=== PATIENT | female | born 1990 | race Caucasian/White ===

== ENCOUNTER 2022-11-24 13:29 | Emergency (ER) | payer OTHER, SELFPAY ==
[2022-11-24 13:37] VITALS: BP 110/69; PULSE 107; RESP 20; TEMP 38.2; O2SAT 98; BMI 20.9
--- NOTE | 2022-11-24 13:50 | ED.NAVMDI1 ---
HPI - Nausea/Vomiting/Diarrhea General Chief complaint: Nausea/Vomiting/Diarrhea Stated complaint: GENERAL WEAKNESS/ FLU LIKE SYMPTOMS Time Seen by Provider: 11/24/22 13:50 Source: patient Source comment: Mother states vomited x 2 today and diarrhea x 2 today Mode of arrival: walk-in Limitations: language barrier and altered mental status Limitations comment: MRDD History of Present Illness HPI Narrative: Patient Brought into the emergency department by parents with the complaint of nausea, vomiting, and diarrhea. Patient has a history of MRDD. She started vomiting 2 times yesterday and had 2 diarrhea bowel movements. She also had a fever. Parents deny any hematemesis, melena, hematochezia. Patient has not had any cough. They deny any shortness of breath. She denies any abdominal pain. Patient sent here by Dr. Mujica for IV hydration. Parents state they gave her Tylenol earlier but she vomited it. Patient wears depends. They deny any recent antibiotics. they denies any trauma. Related Data Home Medications Medication Instructions Recorded Confirmed multivitamin (Daily Multi-Vitamin 1 tab PO DAILY 11/24/22 11/24/22 tablet) risperidone 1 mg tablet 1 mg PO DAILY 11/24/22 11/24/22 trazodone 100 mg tablet 150 mg PO DAILY 11/24/22 11/24/22 Previous Rx's Medication Instructions Recorded ciprofloxacin HCl 500 mg tablet 250 mg PO Q12H #14 tabs 11/24/22 (Cipro) metronidazole 500 mg tablet 500 mg PO BID 10 days #20 tabs 11/24/22 ondansetron 4 mg disintegrating 4 mg PO Q6H PRN nausea and 11/24/22 tablet vomiting #10 tabs Allergies Allergy/AdvReac Type Severity Reaction Status Date / Time No Known Drug Allergies Allergy Verified 11/24/22 13:43 Review of Systems ROS Status of ROS unobtainable due to mental status PFSH PFSH Social History Smoking status: Never smoker Exam Narrative Exam Narrative: Nurses notes and vital signs reviewed and patient is not hypoxic. General: Nontoxic, MRDD, in no apparent distress. Skin: Warm, dry, no pallor noted. No Rash Head: Normocephalic, atraumatic. Neck: Supple, non-tender. Eye: Pupils are equal, round and EOMI. No scleral icterus. Ears, Nose, Mouth, and Throat: TM clear, no posterior oropharynx erythema or nasal mucosal hypertrophy, uvula is mid-line Oral mucosa is dry, Macroglossia Cardiovascular: Regular Rate and Rhythm without murmur, gallop or rub. Respiratory: No accessory muscle use or respiratory distress. Lungs Scattered rhonchi Chest Wall: no tenderness Back: No midline thoracic or lumbar vertebral tenderness. No CVA tenderness Musculoskeletal: normal ROM, no calf or popliteal tenderness, no lower extremity edema/swelling GI: Abdomen is soft, non-distended. Normal bowel sounds. No tenderness to palpation. No rebound, guarding, or rigidity noted. Neurological: A&O x1. No truncal ataxia. Moves all extremities. Psychiatric: Cooperative Constitutional Vital Signs - 24 hr 11/24/22 13:37 11/24/22 14:00 11/24/22 16:20 Temperature 100.7 F H 102.8 F H Pulse Rate [Monitor] 107 H 104 H Respiratory Rate 20 18 Blood Pressure [Left Arm] 110/69 92/60 Pulse Oximetry 98 98 98 Oxygen Delivery Method Room Air Room Air Room Air Course Vital Signs Vital signs: Vital Signs Temperature 100.7 F H 11/24/22 13:37 Pulse Rate 107 H 11/24/22 13:37 Respiratory Rate 20 11/24/22 13:37 Blood Pressure 110/69 11/24/22 13:37 Pulse Oximetry 98 11/24/22 13:37 Oxygen Delivery Method Room Air 11/24/22 13:37 Temperature 102.8 F H 11/24/22 16:20 Pulse Rate 104 H 11/24/22 16:20 Respiratory Rate 18 11/24/22 16:20 Blood Pressure 92/60 11/24/22 16:20 Pulse Oximetry 98 11/24/22 16:20 Oxygen Delivery Method Room Air 11/24/22 16:20 MDM - Nausea/Vomiting/Diarrhea MDM Narrative Medical decision making narrative: Patient had an IV established lab studies were done. Patient was given 1 L off normal saline and antiemetics. Patient was febrile she was given Tylenol. We were awaiting a urinalysis and stool sample. Patient was at her baseline was sitting up and interacting with family as usual so the family wanted to go and take her home. They stated they just wanted to get IV fluids and she has perked up and is acting normal. We advised that the patient still had a fever and we would benefit from obtaining the stool sample to see if she needs to be treated with antibiotics. Family is eager to go. I discussed this with Dr. Mujica who advised to have the patient to a stool sample as an outpatient and start preemptively on Cipro and Flagyl. The patient has remained hemodynamically stable. No additional indication for emergent studies at this time. I answered all questions. Discussed discharge instructions including standard anticipatory guidance and what should prompt a return to the emergency department, including if they get worse are not getting better or develops any new or concerning symptoms. I've given them specific time frame in which to follow-up, and who to follow-up with. The patient demonstrates understanding. Patient is nontoxic and stable for discharge with outpatient follow-up. This note was created with the assistance of a speech recognition program. Although the intention is to generate documents that actually reflects the content of the visit, no guarantees can be provided that every mistake has been identified and corrected by editing. Differential Diagnosis Differential diagnosis: Likely gastroenteritis and dehydration Lab Data Attestation: I reviewed the patient's lab results. Labs: Lab Results 11/24/22 11/24/22 Range/Units 15:00 15:19 WBC 4.7 (4.0-11.0) 10^3/uL RBC 4.00 L (4.20-5.40) 10^6/uL Hgb 13.8 (12.0-16.0) g/dL Hct 40.7 (36.0-48.0) % MCV 101.8 H (81.0-99.0) fL MCH 34.5 H (26.7-34.0) pg MCHC 33.9 (29.9-35.2) g/dL RDW 13.2 (11.0-15.0) % Plt Count 163 (150-450) 10^3/uL MPV 8.8 L (9.5-13.5) fL Seg Neuts % (Manual) 79.0 Band Neutrophils % 9.0 H (0-5) % Lymphocytes % (Manual) 9.0 L (20.5-60.0) % Monocytes % (Manual) 2.0 (1.7-12.0) % Eosinophils % (Manual) 1.0 (0.9-7.0) % Basophils % (Manual) 0.0 L (0.2-2.0) % Neutrophils # (Manual) 3.71 (1.4-6.5) 10^3/uL Band Neutrophils # 0.4 H (0.0-0.3) 10^3/uL Lymphocytes # (Manual) 0.42 L (1.20-3.80) 10^3/uL Monocytes # (Manual) 0.09 L (0.30-0.80) 10^3/uL Eosinophils # (Manual) 0.04 (0.00-0.70) 10^3/uL Basophils # (Manual) 0.00 (0.00-0.10) 10^3/uL Sodium 140 (136-145) mmol/L Potassium 3.8 (3.5-5.1) mmol/L Chloride 105 (98-107) mmol/L Carbon Dioxide 26.2 (21.0-32.0) mmol/L Anion Gap 12.6 BUN 17.0 (7.0-18.0) mg/dL Creatinine 0.88 (0.55-1.02) mg/dL Est GFR ( Amer) >60 (>=60) Est GFR (Non-Af Amer) >60 (>=60) BUN/Creatinine Ratio 19.3 Glucose 105 (74-106) mg/dL Lactate 1.5 (0.4-2.0) mmol/L Calcium 8.0 L (8.5-10.1) mg/dL Total Bilirubin 0.6 (0.2-1.0) mg/dL AST 75 H (15-37) U/L ALT 208 H (14-59) U/L Alkaline Phosphatase 67 (46-116) U/L Total Protein 7.0 (6.4-8.2) g/dL Albumin 3.1 L (3.4-5.0) g/dL Globulin 3.9 g/dL Albumin/Globulin Ratio 0.8 Urine Color Dk. yellow (YELLOW) Urine Clarity Clear (CLEAR) Urine pH 5.5 (5.0-9.0) Ur Specific [place] >=1.030 A (1.005-1.025) Urine Protein 30 A (NEG/TRACE) mg/dL Urine Glucose (UA) Negative (NEGATIVE) mg/dL Urine Ketones Trace A (NEGATIVE) mg/dL Urine Occult Blood Negative (NEGATIVE) Urine Nitrite Negative (NEGATIVE) Urine Bilirubin Small A (NEGATIVE) Urine Urobilinogen 1.0 (0.2-1.0) EU/dL Ur Leukocyte Esterase Negative (NEGATIVE) Urine RBC 0-2 (0-2) #/HPF Urine WBC 0-2 A (NONE SEEN) #/HPF Ur Squamous Epith Cells Few A (NONE/RARE) #/LPF Urine Crystals None seen (None Seen) #/HPF Urine Bacteria Trace A (NONE SEEN) #/HPF Urine Casts None seen (NONE SEEN) #/LPF Urine Mucus Small A (NONE SEEN) Ur Culture Indicated? No Discharge Plan Discharge Chief Complaint: Nausea/Vomiting/Diarrhea Clinical Impression: Gastroenteritis, Dehydration Patient Disposition: Home, Self-Care Time of Disposition Decision: 16:28 Condition: Good Mode of Transportation: Private Vehicle Prescriptions / Home Meds: New ciprofloxacin HCl [Cipro] 500 mg tablet 250 mg PO Q12H Qty: 14 0RF metronidazole 500 mg tablet 500 mg PO BID 10 Days Qty: 20 0RF ondansetron 4 mg tablet,disintegrating 4 mg PO Q6H PRN (Reason: nausea and vomiting) Qty: 10 0RF No Action multivitamin [Daily Multi-Vitamin] Tablet 1 tab PO DAILY risperidone 1 mg tablet 1 mg PO DAILY trazodone 100 mg tablet 150 mg PO DAILY Instructions: Dehydration (ED), Gastroenteritis (ED) Stand Alone Forms: Portal Instructions Referrals: Yanely Chandler MD [Primary Care Provider] - 1 week ROULA MUJICA [Physician] - 1 week Discharge Date/Time: 11/24/22 17:00
[2022-11-24 14:00] VITALS: O2SAT 98
[2022-11-24] MEDS: 0.9 % SODIUM CHLORIDE 1,000 ML 999 ML IV (14:19)
[2022-11-24] MEDS: ONDANSETRON PF 4 MG/2 ML VIAL IV (14:19)
[2022-11-24 15:14] LABS: Hematocrit 40.7 % (36.0-48.0); Hemoglobin 13.8 g/dL (12.0-16.0); Mean Corpuscular HGB Conc 33.9 g/dL (29.9-35.2); Mean Corpuscular Hemoglobin 34.5 pg (26.7-34.0); Mean Corpuscular Volume 101.8 fL (81.0-99.0); Mean Platelet Volume 8.8 fL (9.5-13.5); Platelet Count 163 10^3/uL (150-450); Red Cell Distribution Width 13.2 % (11.0-15.0); White Blood Count 4.7 10^3/uL (4.0-11.0)
[2022-11-24 15:15] LABS: Bilirubin Urine SMALL (NEGATIVE); Blood Urine NEGATIVE (NEGATIVE); Clarity Urine CLEAR (CLEAR); Color Urine DK. YELLOW (YELLOW); Glucose Urine UA NEGATIVE (NEGATIVE); Ketones Urine TRACE mg/dL (NEGATIVE); Leukocyte Esterase Urine NEGATIVE (NEGATIVE); Nitrite Urine NEGATIVE (NEGATIVE); Protein Urine 30 mg/dL (NEG/TRACE); Specific Gravity Urine >=1.030 (1.005-1.025); pH Urine 5.5 (5.0-9.0)
[2022-11-24 15:19] LABS: Urine Microscopic Indicated YES
[2022-11-24] MEDS: ACETAMINOPHEN 160 MG/5 ML ORAL.SUSP 650 MG PO (15:36)
[2022-11-24 15:43] LABS: Alanine Aminotransferase 208 U/L (14-59); Albumin Globulin Ratio 0.8; Albumin Level 3.1 g/dL (3.4-5.0); Alkaline Phosphatase 67 U/L (46-116); Anion Gap 12.6; Aspartate Amino Transferase 75 U/L (15-37); BUN Creatinine Ratio 19.3; Bilirubin Total 0.6 mg/dL (0.2-1.0); Carbon Dioxide 26.2 mmol/L (21.0-32.0); Chloride 105 mmol/L (98-107); Estimated GFR (African America >60 (>=60); Estimated GFR (Non-African Ame >60 (>=60); Globulin 3.9 g/dL; Glucose 105 mg/dL (74-106); Potassium 3.8 mmol/L (3.5-5.1); Sodium 140 mmol/L (136-145)
[2022-11-24 15:45] LABS: Bacteria Urine TRACE #/HPF (NONE SEEN); Mucus Urine SMALL (NONE SEEN); RBC Urine 0-2 #/HPF (0-2); WBC Urine 0-2 #/HPF (NONE SEEN)
[2022-11-24 15:46] LABS: Lactate/Lactic Acid 1.5 mmol/L (0.4-2.0)
[2022-11-24 15:46] LABS: Cast Seen? NONE SEEN #/LPF (NONE SEEN); Crystals Seen? None Seen #/HPF (None Seen); Squamous Epithelial Cell Urine FEW #/LPF (NONE/RARE); Urine Culture Indicated NO
[2022-11-24 15:50] LABS: Band Neutrophils Absolute 0.4 10^3/uL (0.0-0.3); Eosinophils Absolute Manual 0.04 10^3/uL (0.00-0.70); Lymphocytes Absolute Manual 0.42 10^3/uL (1.20-3.80); Monocytes Absolute Manual 0.09 10^3/uL (0.30-0.80); Segmented Neut Absolute Manual 3.71 10^3/uL (1.4-6.5)
[2022-11-24 16:20] VITALS: BP 92/60; PULSE 104; RESP 18; TEMP 39.3; O2SAT 98
== END 2022-11-24 17:00 | disposition home or self-care (01) ==
PROVIDERS: Emergency Provider Emergency Medicine; PCP Specialist
DX: K52.9 Noninfective gastroenteritis and colitis, unspecified (principal); E86.0 Dehydration; F79 Unspecified intellectual disabilities; Z79.899 Other long term (current) drug therapy
CPT/HCPCS: 36415; 80053; 81003; 81015; 83605; 85007; 85025; 87507; 96374; 99285

== ENCOUNTER 2022-11-25 12:45 | Outpatient (REF) | payer OTHER, SELFPAY ==
[2022-11-25 12:55] LABS: Adenovirus F 40/41 NOT DETECTED (NOT DETECTE); Astrovirus NOT DETECTED (NOT DETECTE); Campylobacter NOT DETECTED (NOT DETECTE); Cryptosporidium NOT DETECTED (NOT DETECTE); Cyclospora cayetanensis NOT DETECTED (NOT DETECTE); E coli 0157 NOT DETECTED (NOT DETECTE); Entamoeba histolytica NOT DETECTED (NOT DETECTE); Enteroaggregative E.coli NOT DETECTED (NOT DETECTE); Enteropathogenic E.coli NOT DETECTED (NOT DETECTE); Enterotoxigenic E. coli NOT DETECTED (NOT DETECTE); Giardia lamblia NOT DETECTED (NOT DETECTE); Norovirus GI/GII NOT DETECTED (NOT DETECTE); Plesiomonas shigelloides NOT DETECTED (NOT DETECTE); Salmonella NOT DETECTED (NOT DETECTE); Sapovirus NOT DETECTED (NOT DETECTE); Shiga-like toxin-producing E.C NOT DETECTED (NOT DETECTE); Shigella/Enteroinvasive E.coli NOT DETECTED (NOT DETECTE); Vibrio NOT DETECTED (NOT DETECTE); Vibrio cholerae NOT DETECTED (NOT DETECTE); Yersinia enterocolitica NOT DETECTED (NOT DETECTE)
[2022-11-25 14:20] LABS: Rotavirus A DETECTED (NOT DETECTE)
== END 2022-11-25 12:46 ==
LOC: LAB 12:45
PROVIDERS: PCP Family Medicine; Visit Provider Emergency Medicine
DX: R19.7 Diarrhea, unspecified (principal)
CPT/HCPCS: 87507

== ENCOUNTER 2023-05-20 15:43 | Emergency (ER) | payer OTHER, SELFPAY ==
[2023-05-20 15:57] VITALS: BP 145/63; PULSE 104; RESP 18; TEMP 36.9; O2SAT 99; BMI 23.0
--- NOTE | 2023-05-20 16:05 | PC.NURSE ---
PT HAS DOWN SYNDROME AND IS NON VERBAL. PT MOTHER AND FATHER STATES THAT PT HAS BEEN FUSSY FOR THE PAST 3 DAYS AND CRYING A LOT. WHEN ASKED IF PT IS DISPLAYING AND PAIN THE PARENTS STATES THAT THEY DON'T KNOW BECAUSE SHE IS NONVERBAL
--- NOTE | 2023-05-20 16:20 | XR_ITS ---
The [address] [address] Patient Name: DEMETRIA BERRY MRN: [id number] date: 1990 Sex: F Assigned Patient Location: ER Current Patient Location: ER Accession/Order Number: [id number] Exam Date: 05/20/2023 16:58 Report Date: 05/20/2023 17:53 At the request of: EJ GARCÍA Procedure: XR chest 1V EXAM: XR chest 1V HISTORY: irritable COMPARISON: None. TECHNIQUE: AP portable study FINDINGS: The cardiovascular silhouette is normal. Lung jean are well-expanded and clear. Pleural spaces are clear. The bony structures are unremarkable. XR/XR chest 1V IMPRESSION: No evidence for acute cardiopulmonary disease. Electronically authenticated by: Sergio DILLARD Date: 05/20/2023 17:53
--- NOTE | 2023-05-20 16:21 | ED_ITS ---
HPI - General Adult General Chief complaint: Upper Respiratory Infection Stated complaint: urti Time Seen by Provider: 05/20/23 16:03 Source: family Mode of arrival: walk-in History of Present Illness HPI narrative: Patient is a 32-year-old female with history of Down syndrome and profound developmental delay who presents to the ER with her elderly parents for the evaluation of fussiness increasing over the last several days. She [place] [facility] during the day, she has been eating and drinking without difficulty. Parents have not noted any fevers, nasal congestion or coughing. No vomiting or diarrhea. They have not noted any indication that she is in pain. No medications taken prior to arrival. No rashes or areas of color change to the skin. She ambulates without difficulty. Mother states the patient was diagnosed with Alzheimer's at age 6. Related Data Home Medications Medication Instructions Recorded Confirmed multivitamin (Daily Multi-Vitamin 1 tab PO DAILY 11/24/22 11/24/22 tablet) risperidone 1 mg tablet 1 mg PO DAILY 11/24/22 11/24/22 trazodone 100 mg tablet 150 mg PO DAILY 11/24/22 11/24/22 Previous Rx's Medication Instructions Recorded ciprofloxacin HCl 500 mg tablet 250 mg (1/2 x 500 mg) PO Q12H #14 11/24/22 (Cipro) tabs metronidazole 500 mg tablet 500 mg PO BID 10 days #20 tabs 11/24/22 ondansetron 4 mg disintegrating 4 mg PO Q6H PRN nausea and 11/24/22 tablet vomiting #10 tabs lorazepam 0.5 mg tablet (Ativan) 0.5 mg PO Q8H PRN agitation 4 days 05/20/23 #12 tabs Allergies Allergy/AdvReac Type Severity Reaction Status Date / Time No Known Drug Allergies Allergy Verified 05/20/23 15:57 Review of Systems ROS Constitutional Denies: fever or chills Ears, nose, mouth, and throat Denies: throat pain or nasal congestion Respiratory Denies: shortness of breath or cough Gastrointestinal Denies: vomiting or diarrhea Musculoskeletal Denies: extremity swelling Integumentary/Breast Denies: rash Hematologic/Lymphatic Denies: easy bruising Allergic/Immunologic Denies: hives PFSH PFSH Social History Smoking status: Never smoker Exam Narrative Exam Narrative: Gen.: Awake, alert, in no distress; on my exam with speaking to and touching the patient, she is easily calmed and distracted Head: Normocephalic, atraumatic ENT: Moist mucous membranes, bilateral TMs obscured by wax, no redness or drainage in the canals Respiratory: No respiratory distress, lungs clear bilaterally Cardio: Regular rate and rhythm Gastrointestinal: Abdomen is soft, nondistended and nontender to palpation; patient sits upright, allows full palpation of the abdomen with no grimacing or guarding Extremities: Moves extremities equally, no injuries noted Psych: Profoundly developmentally delayed Neuro: Patient moves all extremities, ambulates Skin: Warm, dry, intact Constitutional Vital Signs, click to edit/add: Last Vital Signs Temp 98.5 F 05/20/23 15:57 Pulse 104 H 05/20/23 15:57 Resp 18 05/20/23 15:57 BP 145/63 H 05/20/23 15:57 Pulse Ox 99 05/20/23 15:57 O2 Del Method Room Air 05/20/23 15:57 Course Vital Signs Vital signs: Vital Signs Temperature 98.5 F 05/20/23 15:57 Pulse Rate 104 H 05/20/23 15:57 Respiratory Rate 18 05/20/23 15:57 Blood Pressure 145/63 H 05/20/23 15:57 Pulse Oximetry 99 05/20/23 15:57 Oxygen Delivery Method Room Air 05/20/23 15:57 Temperature 98.5 F 05/20/23 15:57 Pulse Rate 104 H 05/20/23 15:57 Respiratory Rate 18 05/20/23 15:57 Blood Pressure 145/63 H 05/20/23 15:57 Pulse Oximetry 99 05/20/23 15:57 Oxygen Delivery Method Room Air 05/20/23 15:57 Medical Decision Making [facility] Narrative Medical decision making narrative: Chest x-ray, urine specimen and COVID test are negative, patient with stable vital signs in the ER, no significant focal medical exam findings concerning for infection or injury. Patient was given Tylenol. She is easily consoled and calms down, but does remain agitated. Patient was reevaluated by attending physician and discussed the case with the patient's parents at bedside. We will use Ativan in the short-term until the patient can be reevaluated by her PCP. They should follow closely with PCP and return to the ER if symptoms change or worsen. Medical Records Medical records reviewed: Yes I reviewed the patient's medical records Lab Data Lab results reviewed: Yes I reviewed the patient's lab results Labs: Lab Results 05/20/23 05/20/23 Range/Units 16:28 17:36 Urine Color Lt. yellow (YELLOW) Urine Clarity Clear (CLEAR) Urine pH 6.5 (5.0-9.0) Ur Specific [place] 1.020 (1.005-1.025) Urine Protein Negative (NEG/TRACE) mg/dL Urine Glucose (UA) Negative (NEGATIVE) mg/dL Urine Ketones Negative (NEGATIVE) mg/dL Urine Occult Blood Negative (NEGATIVE) Urine Nitrite Negative (NEGATIVE) Urine Bilirubin Negative (NEGATIVE) Urine Urobilinogen 0.2 (0.2-1.0) EU/dL Ur Leukocyte Esterase Trace A (NEGATIVE) Urine RBC None seen (0-2) #/HPF Urine WBC 0-2 A (NONE SEEN) #/HPF Ur Squamous Epith Cells Few A (NONE/RARE) #/LPF Urine Crystals None seen (None Seen) #/HPF Urine Bacteria None seen (NONE SEEN) #/HPF Urine Casts None seen (NONE SEEN) #/LPF Urine Mucus None seen (NONE SEEN) Ur Culture Indicated? No SARS-CoV-2 (PCR) Negative (NEGATIVE) Imaging Data Chest x-ray: Attestation: I have reviewed the pertinent imaging results. Radiologist's impression: Procedure: XR chest 1V EXAM: XR chest 1V HISTORY: irritable COMPARISON: None. TECHNIQUE: AP portable study FINDINGS: The cardiovascular silhouette is normal. Lung jean are well-expanded and clear. Pleural spaces are clear. The bony structures are unremarkable. IMPRESSION: No evidence for acute cardiopulmonary disease. Electronically authenticated by: Sergio DILLARD Date: 05/20/2023 17:53 Discharge Plan Discharge Chief Complaint: Upper Respiratory Infection Clinical Impression: Agitation Patient Disposition: Home, Self-Care Time of Disposition Decision: 17:59 Condition: Good Prescriptions / Home Meds: New lorazepam [Ativan] 0.5 mg tablet 0.5 mg PO Q8H PRN (Reason: agitation) 4 Days Qty: 12 0RF Rx Instructions: DX: R45.1 No Action multivitamin [Daily Multi-Vitamin] Tablet 1 tab PO DAILY risperidone 1 mg tablet 1 mg PO DAILY trazodone 100 mg tablet 150 mg PO DAILY ciprofloxacin HCl [Cipro] 500 mg tablet 250 mg PO Q12H Qty: 14 0RF metronidazole 500 mg tablet 500 mg PO BID 10 Days Qty: 20 0RF ondansetron 4 mg tablet,disintegrating 4 mg PO Q6H PRN (Reason: nausea and vomiting) Qty: 10 0RF Instructions: Anxiety (ED) Stand Alone Forms: Portal Instructions Referrals: JACY BAER [Primary Care Provider] - 1 week
[2023-05-20] MEDS: ACETAMINOPHEN 325 MG TABLET 650 MG PO (16:28)
[2023-05-20 16:56] LABS: SARS-CoV-2 Ag NEGATIVE (NEGATIVE)
[2023-05-20 17:46] LABS: Bilirubin Urine NEGATIVE (NEGATIVE); Blood Urine NEGATIVE (NEGATIVE); Clarity Urine CLEAR (CLEAR); Color Urine LT. YELLOW (YELLOW); Glucose Urine UA NEGATIVE (NEGATIVE); Ketones Urine NEGATIVE (NEGATIVE); Leukocyte Esterase Urine TRACE (NEGATIVE); Nitrite Urine NEGATIVE (NEGATIVE); Protein Urine NEGATIVE (NEG/TRACE); Urobilinogen Urine 0.2 EU/dL (0.2-1.0); pH Urine 6.5 (5.0-9.0)
[2023-05-20 17:47] LABS: Urine Microscopic Indicated YES
[2023-05-20 17:55] LABS: Bacteria Urine NONE SEEN #/HPF (NONE SEEN); Mucus Urine NONE SEEN (NONE SEEN); RBC Urine NONE SEEN #/HPF (0-2); Squamous Epithelial Cell Urine FEW #/LPF (NONE/RARE); WBC Urine 0-2 #/HPF (NONE SEEN)
[2023-05-20 17:56] LABS: Cast Seen? NONE SEEN #/LPF (NONE SEEN); Crystals Seen? None Seen #/HPF (None Seen); Urine Culture Indicated NO
[2023-05-20] MEDS: LORAZEPAM 0.5 MG TABLET PO (18:03)
[2023-05-22 14:47] LABS: SARS-CoV-2 NAA NOT DETECTED (NOT DETECTE)
== END 2023-05-20 18:10 | disposition home or self-care (01) ==
PROVIDERS: Physician Assistant; Emergency Provider Emergency Medicine; PCP Nurse Practitioner
DX: R45.1 Restlessness and agitation (principal); Q90.9 Down syndrome, unspecified; F73 Profound intellectual disabilities
CPT/HCPCS: 71045; 81001; 87635; 87811; 99284

== ENCOUNTER 2023-09-05 18:07 | Emergency (ER) | payer OTHER, SELFPAY ==
[2023-09-05 18:15] VITALS: BP 115/74; PULSE 80; RESP 14; TEMP 36.8; O2SAT 100; BMI 23.0
--- OUTSIDE RECORDS SUMMARY | 2023-09-05 18:17 | XMS_ITS | CCD ---
Author Organization [facility] Care Team Providers Care Hospital Clerk Name Role Phone ANGELICA CRUZ Admitting Unavailable CHANDLER, YANELY Primary Care Unavailable CHANDLER, YANELY Referring Unavailable JEANETTE MYERS Attending Unavailable EBRAHEIM, ANDREW Admitting Unavailable EBRAHEIM, ANDREW Attending Unavailable CHANDLER, YANELY Referring Unavailable CHANDLER, YANELY Primary Care Unavailable ID Procedure Practitioner Unavailab ANDREW Connor Surgeon Unavailable ID Procedure Practitioner Unavailab ROBERT Gallagher Surgeon Unavailable CHANDLER, DR YANELY Vale Admitting Unavailable CHANDLER, DR YANELY Vale Attending Unavailable CHANDLER, DR YANELY Vale Primary Care Unavailable CHANDLER, DR YANELY Vale Consulting Unavailable CHANDLER, DR YANELY Vale Admitting Unavailable CHANDLER, DR YANELY Vale Attending Unavailable CHANDLER, DR YANELY Vale Primary Care Unavailable CHANDLER, DR YANELY Vale Consulting Unavailable CHANDLER, DR YANELY Vale Admitting Unavailable CHANDLER, DR YANELY Vale Attending Unavailable CHANDLER, DR YANELY Vale Primary Care Unavailable CHANDLER, DR YANELY Vale Consulting Unavailable SPROUT, JORDAN Admitting Unavailable SPROUT, JORDAN Attending Unavailable CHANDLER, DR YANELY Vale Primary Care Unavailable SPROUT, JORDAN Consulting Unavailable SPROUT, JORDAN Admitting Unavailable SPROUT, JORDAN Attending Unavailable CHANDLER, DR YANELY Vale Primary Care Unavailable SPROUT, JORDAN Consulting Unavailable Yenny, Nova Camarena Attending Unavailable Yenny, Nova Camarena Attending Unavailable Yenny, Nova Camarena Attending Unavailable Yenny, Nova Camarena Attending Unavailable Yenny, Nova Camarena Attending Unavailable Yenny, Nova Camarena Attending Unavailable Yenny, Nova Camarena Attending Unavailable Yenny, Nova Camarena Attending Unavailable Yenny, Nova Camarena Attending Unavailable Yenny, Nova Camarena Attending Unavailable Dalton Alexandra Attending Unavailab Dalton Strickland Admitting Unavailab le NO FAMILY, PHYSICIAN Primary Care Unavailable Allergies Allergy Classification Reported Allergen(s) Allergy Type Date of Onset Reaction(s) Facility (1 source) Amoxicillin; Translations: [amoxicillin] Drug Allergy [facility] Repository (1 source) carbinoxamine / Pseudoephedrine; Translations: [Rondec] Drug Allergy [facility] Repository Problems Active Problems Problem Classification Problem Date Documented Da te Episodic/Chronic Anxiety disorders (5 sources) Anxiety disorder, unspecified; Translations: [ANXIETY DISORDER UNSPECIFIED] Onset: 12-17-2021 Chronic Other aftercare (5 sources) 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; Translations: [OTH ASSISTED CURRENT DRUG THERAPY] Onset: 12-10-2021 Episodic Unclassified (3 sources) CONTACT W/AND (SUSP) EXPOS COVID-19; Translations: [CONTACT W/AND (SUSP) EXPOS COVID-19] Onset: 02-02-2022 Past or Other Problems Problem Classification Problem Date Documented Da te Episodic/Chronic Unclassified (1 source) CONTACT W/AND (SUSP) EXPOS COVID-19; Translations: [CONTACT W/AND (SUSP) EXPOS COVID-19] Onset: 02-01-2022 Results Test Name Value Interpretation Reference Range Facility Nurse Consultation Noteon Nurse Consultation Note Reason for Visit depo shot Assessment/Plan Patient's mom present and signs consent form. Medication brought by mom administered into left deltoid. Contraception management (Z30.9: Encounter for contraceptive management, unspecified) Medications erythromycin Opth 0.5% Oint, 1/4 inch ribbon, Eye-Left, As Directed LORazepam 0.5 mg Tab, 0.5 mg= 1 tab(s), Oral, q8hr, Not taking medroxyPROGESTERone 150 mg/mL IM Susp, 150 mg= 1 mL, IntraMuscular, q3mo, 3 refills memantine 10 mg Tab, See Instructions Risperdal 1 mg Tab, 2 mg= 2 tab(s), Oral, Daily Risperdal 3 mg Tab, 3 mg= 1 tab(s), Oral, Bedtime traZODONE 100 mg Tab, See Instructions Allergies Rondec (Unknown) amoxicillin (Unknown) Normal [facility] Family Medicine Office/Clini c Noteon 08-09-2023 Family Medicine Office/Clinic Note HPI Staff Demetria is a 33 year old female presenting for acute visit Acute: pink eye left eye Sent home today from the center. no drainage, not goopy Mom says she is a little congested and she yells and yells like she's upset then just laugh History of Present Illness pt presents today with left eye drainage and redness Review of Systems ROS - Provider Constitutional: no fever, no chills, no sweats, no fatigue Respiratory: no shortness of breath, no cough, no orthopnea, no wheezing. Cardiovascular: no chest pain, no palpitations, no edema. Neurologic: no headache, no dizziness, no numbness, no weakness. left eye red and draining Physical Exam Vitals & Measurements T: 37.1 ?C(Temporal Artery) HR: 80(Peripheral) RR: 18 BP: 108/70 SpO2: 100% HT: 59 in HT: 148.8 cm WT: 53.0 kg WT: 116.6 lb BMI: 23.94 General: alert, no acute distress ENMT: oral mucosa moist, no pharyngeal erythema or exudate Cardiovascular: regular rate and rhythm, normal peripheral perfusion Respiratory: Lungs CTA, respirations non labored Extremities: no deformity, no trauma Neurological: oriented x 4, LOC appropriate for age, CN II-XII intact, motor strength equal & normal bilaterally, speech normal left conjunctiva red and swollen Assessment/Plan 1. Conjunctivitis, left eye (H10.9: Unspecified conjunctivitis) left eye red with drainage. will order ees ointment. pt to stay home from school until tuesday 2. BMI 23.0-23.9, adult (Z68.23: Body mass index [BMI] 23.0-23.9, adult) BMI education complete 3. Nonsmoker (Z78.9: Other specified health status) continue not smoking Follow-up No qualifying data available Problem List/Past Medical History Ongoing Autistic disorder Conjunctivitis, left eye Dementia Depression Diarrhea Down syndrome, unspecified Hidradenitis suppurativa Incontinence without sensory awareness Manic disorder Menorrhagia Oppositional defiant disorder Orthostatic hypotension Other specified persistent mood disorders Otitis media Premenstrual tension Rash Sleep disorder Umbilical hernia Vomiting Historical No qualifying data Procedure/Surgical History Tibia and fibula (combined site) (06/13/2017), Surgery. Medications erythromycin Opth 0.5% Oint, 1/4 inch ribbon, Eye-Left, As Directed LORazepam 0.5 mg Tab, 0.5 mg= 1 tab(s), Oral, q8hr, Not taking medroxyPROGESTERone 150 mg/mL IM Susp, 150 mg= 1 mL, IntraMuscular, q3mo, 3 refills memantine 10 mg Tab, See Instructions Risperdal 1 mg Tab, 2 mg= 2 tab(s), Oral, Daily Risperdal 3 mg Tab, 3 mg= 1 tab(s), Oral, Bedtime traZODONE 100 mg Tab, See Instructions Allergies Rondec (Unknown) amoxicillin (Unknown) Social History Tobacco Never (less than 100 in lifetime) Tobacco Use:. Never Smokeless Tobacco Use:. Household tobacco concerns: No., 08/08/2023 Family History Depression: Mother. Hypothyroidism: Father. Primary malignant neoplasm of female breast: Mother. Normal [facility] Comment on above: Result Comment: Elec tronically Signed By: Nova Randhawa\.br\Date and Time Signed: 08/09/23 16:13 EST Ambulatory Visit Summaryon 0 08-08-2023 Ambulatory Visit Summary DEMETRIA BERRY :1990 Visit Date:08/08/2023 Ambulatory Visit Instructions Your Diagnosis BMI 23.0-23.9, adult Nonsmoker Your Care Team Attending Physician - Nova Randhawa Primary Care Physician - Nova Randhawa This Is Your Medications List lorazepam (LORazepam 0.5 mg Tab) medroxyPROGESTERone (medroxyPROGESTERone 150 mg/mL IM Susp) memantine (memantine 10 mg Tab) risperidone (Risperdal 1 mg Tab) risperidone (Risperdal 3 mg Tab) trazodone (traZODONE 100 mg Tab) Procedures Performed Tibia and fibula (combined site) (06/13/2017), Surgery. Discharge Vitals Temperature (Temporal Artery) 37.1 ?C Heart Rate (Peripheral) 80 Respiratory Rate 18 Blood Pressure 108/70 Height 148.8 cm Height 59 in Weight 53.0 kg Weight 116.6 lb BMI 23.94 What to do next Scheduled Follow-Up Appointments Tuesday 3:00 PM EST Where: [facility] Provider Letteron 08-08-2023 Provider Letter (Inserted Image. Sunshine ble to display) August 08, 2023 DEMETRIA BERRY [address] [place] [address] : 1990 To Whom It May Concern, Please excuse above patient from workshop on Tuesday Date of Illness: From: _08-08-23 To: _ 08-09-23 May Return to Work On: 08-10-23 Restrictions: _ NONE Comments: _ Sincerely, Family Medicine [address] [address] [facility] Consultation Noteon 08-03-19 Consultation Note [id number] F [facility] Ambulatory Visit Summaryon 0 2023 Ambulatory Visit Summary KRISTI DEMETRIA Jose David :1990 Visit Date:2023 Ambulatory Visit Instructions Your Diagnosis BMI 23.0-23.9, adult Non-smoker Your Care Team Attending Physician - Nova Randhawa Primary Care Physician - Nova Randhawa This Is Your Medications List lorazepam (LORazepam 0.5 mg Tab) medroxyPROGESTERone (medroxyPROGESTERone 150 mg/mL IM Susp) memantine (memantine 10 mg Tab) risperidone (Risperdal 1 mg Tab) risperidone (Risperdal 3 mg Tab) trazodone (traZODONE 100 mg Tab) Procedures Performed Tibia and fibula (combined site) (06/13/2017), Surgery. Discharge Vitals Temperature (Tympanic) 36.7 ?C Heart Rate (Peripheral) 68 Respiratory Rate 18 Blood Pressure 122/80 Height 148.8 cm Height 59 in Weight 52.6 kg Weight 115.72 lb BMI 23.76 What to do next Scheduled Follow-Up Appointments Tuesday 3:00 PM EST Where: [facility] Family Medicine Office/Clini c Noteon 2023 Family Medicine Office/Clinic Note HPI Staff Demetria is a 32 year old female presenting for acute visit Mother states patient has been very fussy and crying a lot for over 4 days, at care center yesterday cried all day. has been running low grade fever last 4 days. Does have intermittent cough and nasal drainage. OTC Tylenol History of Present Illness pt presents today with crying and irritabiltiy. Review of Systems PHQ Score Initial Depression Screen Score: 0 SCORE ROS - Provider Constitutional: no fever, no chills, no sweats, no fatigue Respiratory: no shortness of breath, no cough, no orthopnea, no wheezing. Cardiovascular: no chest pain, no palpitations, no edema. Neurologic: no headache, no dizziness, no numbness, no weakness. Physical Exam Vitals & Measurements T: 36.7 ?C(Tympanic) HR: 68(Peripheral) RR: 18 BP: 122/80 SpO2: 98% HT: 59 in HT: 148.8 cm WT: 52.6 kg WT: 115.72 lb BMI: 23.76 General: alert, no acute distress ENMT: oral mucosa moist, no pharyngeal erythema or exudate, right OM noted Cardiovascular: regular rate and rhythm, normal peripheral perfusion Respiratory: Lungs CTA, respirations non labored Extremities: no deformity, no trauma Neurological: oriented x 4, LOC appropriate for age, CN II-XII intact, motor strength equal & normal bilaterally, speech normal Assessment/Plan 1. Otitis media (H66.90: Otitis media, unspecified, unspecified ear) Right OM noted on exam. pt is very irritable and crying. she is non verbal. will treat with antibiotic. RTC as needed 2. BMI 23.0-23.9, adult (Z68.23: Body mass index [BMI] 23.0-23.9, adult) BMI education complete 3. Non-smoker (Z78.9: Other specified health status) continue not smoking Orders: cefuroxime, 250 mg = 1 tab(s), Oral, BID, X 7 day(s), # 14 tab(s), Refills(s) 0, Pharmacy: [facility]/pharmacy #[id number], 148.8, cm, 07/07/23 10:19:00 EST, Height/Length Dosing, 52.6, kg, 07/07/23 10:19:00 EST, Weight Dosing Follow-up No qualifying data available Problem List/Past Medical History Ongoing Autistic disorder Dementia Depression Diarrhea Down syndrome, unspecified Hidradenitis suppurativa Incontinence without sensory awareness Manic disorder Menorrhagia Oppositional defiant disorder Orthostatic hypotension Other specified persistent mood disorders Otitis media Premenstrual tension Rash Sleep disorder Umbilical hernia Vomiting Historical No qualifying data Procedure/Surgical History Tibia and fibula (combined site) (06/13/2017), Surgery. Medications cefuroxime 250 mg Tab, 250 mg= 1 tab(s), Oral, BID LORazepam 0.5 mg Tab, 0.5 mg= 1 tab(s), Oral, q8hr medroxyPROGESTERone 150 mg/mL IM Susp, 150 mg= 1 mL, IntraMuscular, q3mo, 3 refills memantine 10 mg Tab, See Instructions Risperdal 1 mg Tab, 2 mg= 2 tab(s), Oral, Daily Risperdal 3 mg Tab, 3 mg= 1 tab(s), Oral, Bedtime traZODONE 100 mg Tab, See Instructions Allergies Rondec (Unknown) amoxicillin (Unknown) Social History Tobacco Never (less than 100 in lifetime) Tobacco Use:. Never Smokeless Tobacco Use:. Household tobacco concerns: No., 05/23/2023 Family History Depression: Mother. Hypothyroidism: Father. Primary malignant neoplasm of female breast: Mother. Normal [facility] Comment on above: Result Comment: Elec tronically Signed By: Nova Randhawa\.br\Date and Time Signed: 07/07/23 10:59 EST Family Medicine Office/Clinic Note HPI Staff Demetria is a 32 year old female presenting for acute visit Mother states patient has been very fussy and crying a lot for over 4 days, at care center yesterday cried all day. has been running low grade fever last 4 days. Does have intermittent cough and nasal drainage. OTC Tylenol History of Present Illness upper respiratory symptoms. crying all day Review of Systems PHQ Score Initial Depression Screen Score: 0 SCORE ROS - Provider Constitutional: no fever, no chills, no sweats, no fatigue Respiratory: no shortness of breath, no cough, no orthopnea, no wheezing. nasal congestion, irritation, crying Cardiovascular: no chest pain, no palpitations, no edema. Neurologic: no headache, no dizziness, no numbness, no weakness. Physical Exam Vitals & Measurements T: 36.7 ?C(Tympanic) HR: 68(Peripheral) RR: 18 BP: 122/80 SpO2: 98% HT: 59 in HT: 148.8 cm WT: 52.6 kg WT: 115.72 lb BMI: 23.76 General: alert, no acute distress ENMT: oral mucosa moist, no pharyngeal erythema or exudate Cardiovascular: regular rate and rhythm, normal peripheral perfusion Respiratory: Lungs CTA, respirations non labored Extremities: no deformity, no trauma Neurological: oriented x 4, LOC appropriate for age, CN II-XII intact, motor strength equal & normal bilaterally, speech normal Assessment/Plan 1. Otitis media (H66.90: Otitis media, unspecified, unspecified ear) pt presents today with increased irritation and crying. right TM slightly red left TM unable to visualize because it is impacted with wax. encouraged mom to use debrox. will treat with antibiotic. the last time she had these symptoms it clear it right up. RTC as needed 2. BMI 23.0-23.9, adult (Z68.23: Body mass index [BMI] 23.0-23.9, adult) BMI education complete 3. Non-smoker (Z78.9: Other specified health status) continue not smoking Orders: cefuroxime, 250 mg = 1 tab(s), Oral, BID, X 7 day(s), # 14 tab(s), Refills(s) 0, Pharmacy: [facility]/pharmacy #[id number], 148.8, cm, 07/07/23 10:19:00 EST, Height/Length Dosing, 52.6, kg, 07/07/23 10:19:00 EST, Weight Dosing Follow-up No qualifying data available Problem List/Past Medical History Ongoing Autistic disorder Dementia Depression Diarrhea Down syndrome, unspecified Hidradenitis suppurativa Incontinence without sensory awareness Manic disorder Menorrhagia Oppositional defiant disorder Orthostatic hypotension Other specified persistent mood disorders Otitis media Premenstrual tension Rash Sleep disorder Umbilical hernia Vomiting Historical No qualifying data Procedure/Surgical History Tibia and fibula (combined site) (06/13/2017), Surgery. Medications cefuroxime 250 mg Tab, 250 mg= 1 tab(s), Oral, BID LORazepam 0.5 mg Tab, 0.5 mg= 1 tab(s), Oral, q8hr medroxyPROGESTERone 150 mg/mL IM Susp, 150 mg= 1 mL, IntraMuscular, q3mo, 3 refills memantine 10 mg Tab, See Instructions Risperdal 1 mg Tab, 2 mg= 2 tab(s), Oral, Daily Risperdal 3 mg Tab, 3 mg= 1 tab(s), Oral, Bedtime traZODONE 100 mg Tab, See Instructions Allergies Rondec (Unknown) amoxicillin (Unknown) Social History Tobacco Never (less than 100 in lifetime) Tobacco Use:. Never Smokeless Tobacco Use:. Household tobacco concerns: No., 05/23/2023 Family History Depression: Mother. Hypothyroidism: Father. Primary malignant neoplasm of female breast: Mother. [facility] Comment on above: Result Comment: Elec tronically Signed By: Nova Randhawa\.br\Date and Time Signed: 07/07/23 10:51 EST Provider Letteron 2023 Provider Letter (Inserted Image. Sunshine ble to display) 2023 [place] [address] : 1990 To Whom It May Concern, Please excuse above patient: Date of Illness: From: 2023 To: 07/10/2023 May Return On: 07/11/2023 Sincerely, [place] [address] [facility] Provider Letteron 05-24-2023 Provider Letter (Inserted Image. Sunshine ble to display) May 24, 2023 [place] [address] : 1990 To Whom It May Concern, Patient may return to the [facility] on Tuesday with no restrictions. Date of Illness: From: _ To: _ May Return to Work On: Thursday May 25, 2023 Restrictions: _ Comments: _ Sincerely, [place] [id number] [facility] Ambulatory Visit Summaryon 1 07-24-2022 Ambulatory Visit Summary DEMETRIA BERRY :1990 Visit Date:05/23/2023 Ambulatory Visit Instructions Your Diagnosis Otitis media BMI 20.0-20.9, adult Non-smoker Your Care Team Attending Physician - Nova Randhawa Primary Care Physician - Nova Randhawa This Is Your Medications List cefuroxime (cefuroxime 250 mg Tab) lorazepam (LORazepam 0.5 mg Tab) medroxyPROGESTERone (medroxyPROGESTERone 150 mg/mL IM Susp) memantine (memantine 10 mg Tab) risperidone (Risperdal 1 mg Tab) risperidone (Risperdal 3 mg Tab) trazodone (traZODONE 100 mg Tab) Procedures Performed Tibia and fibula (combined site) (06/13/2017), Surgery. Discharge Vitals Temperature (Tympanic) 36.8 ?C Heart Rate (Peripheral) 78 Respiratory Rate 16 Blood Pressure 122/76 Height 148.8 cm Height 59 in Weight 51.8 kg Weight 113.96 lb BMI 23.4 Medications What How Much When Instructions Unchanged cefuroxime (cefuroxime 250 mg Tab) 1 Tablets By Mouth 2 times a day Duration: 7 Days Pickup at [facility]/pharmacy #[id number] Unchanged lorazepam (LORazepam 0.5 mg Tab) 1 Tablets By Mouth Every 8 hours Unchanged medroxyPROGESTERone (medroxyPROGESTERone 150 mg/ mL IM Susp) 1 Milliliter Intramuscular Every 3 months Unchanged memantine (memantine 10 mg Tab) See instructions 2 tabs BID Unchanged risperidone (Risperdal 1 mg Tab) 2 Tablets By Mouth Every day Unchanged risperidone (Risperdal 3 mg Tab) 1 Tablets By Mouth At bedtime Unchanged trazodone (traZODONE 100 mg Tab) See instructions Can take up to 3 tabs at bedtime Pharmacy Information [facility]/pharmacy #[id number]: [address], [place] [id number] [phone] Allergies Rondec (Unknown) amoxicillin (Unknown) Problems Ongoing - Any problem that you are currently receiving treatment for. Autistic disorder Dementia Depression Diarrhea Down syndrome, unspecified Hidradenitis suppurativa Incontinence without sensory awareness Manic disorder Menorrhagia Oppositional defiant disorder Orthostatic hypotension Other specified persistent mood disorders Otitis media Premenstrual tension Rash Sleep disorder Umbilical hernia Vomiting Patient Survey You may receive a survey via text or e-mail asking about your office visit. Please share your experience with us by completing your survey. We appreciate your feedback and thank you for choosing us for your care. Jonn Desouza [facility] Family Medicine Office/Clini c Bennie 05-23-2023 Family Medicine Office/Clinic Note HPI Staff Demetria is a 32 year old female presenting for acute sick visit Pt was in ER [facility] 05/20/23 (requested this am) Onset 05/19/23 mother states no temp, no sinus symptoms, no diarrhea. Mother states they ran all sorts of testing at [facility] and nothing was found. Eating well History of Present Illness pt presents today with parents. she is non verbal. parents say she has been crying like she is in pain. Went to ER. urine, chest xray and covid were negative Review of Systems ROS - Provider Constitutional: no fever, no chills, no sweats, no fatigue, crying in pain Respiratory: no shortness of breath, no cough, no orthopnea, no wheezing. Cardiovascular: no chest pain, no palpitations, no edema. Neurologic: no headache, no dizziness, no numbness, no weakness. Physical Exam Vitals & Measurements T: 36.8 ?C(Tympanic) HR: 78(Peripheral) RR: 16 BP: 122/76 HT: 59 in HT: 148.8 cm WT: 51.8 kg WT: 113.96 lb BMI: 23.4 General: alert, no acute distress ENMT: oral mucosa moist, no pharyngeal erythema or exudate Cardiovascular: regular rate and rhythm, normal peripheral perfusion Respiratory: Lungs CTA, respirations non labored Extremities: no deformity, no trauma Neurological: oriented x 4, LOC appropriate for age, CN II-XII intact, motor strength equal & normal bilaterally, speech normal Assessment/Plan 1. Otitis media (H66.90: Otitis media, unspecified, unspecified ear) pt is crying out like she is in pain. continuously rubbing her right ear. unable to visualize TM due to wax. pt has severe developmental disabilities and is not real cooperative. Will treat for ottis media. mom encouraged to rotate Tylenol and ibuprofen every 4 hours for the pain. all questions answered. RTC as needed 2. BMI 20.0-20.9, adult (Z68.20: Body mass index [BMI] 20.0-20.9, adult) BMI education complete 3. Non-smoker (Z78.9: Other specified health status) continue not smoking Orders: cefuroxime, 250 mg = 1 tab(s), Oral, BID, X 7 day(s), # 14 tab(s), Refills(s) 0, Pharmacy: [facility]/pharmacy #[id number], 148.8, cm, 05/23/23 8:24:00 EST, Height/Length Dosing, 51.8, kg, 05/23/23 8:24:00 EST, Weight Dosing Follow-up No qualifying data available Problem List/Past Medical History Ongoing Autistic disorder Dementia Depression Diarrhea Down syndrome, unspecified Hidradenitis suppurativa Incontinence without sensory awareness Manic disorder Menorrhagia Oppositional defiant disorder Orthostatic hypotension Other specified persistent mood disorders Otitis media Premenstrual tension Rash Sleep disorder Umbilical hernia Vomiting Historical No qualifying data Procedure/Surgical History Tibia and fibula (combined site) (06/13/2017), Surgery. Medications cefuroxime 250 mg Tab, 250 mg= 1 tab(s), Oral, BID LORazepam 0.5 mg Tab, 0.5 mg= 1 tab(s), Oral, q8hr medroxyPROGESTERone 150 mg/mL IM Susp, 150 mg= 1 mL, IntraMuscular, q3mo, 3 refills memantine 10 mg Tab, See Instructions Risperdal 1 mg Tab, 2 mg= 2 tab(s), Oral, Daily Risperdal 3 mg Tab, 3 mg= 1 tab(s), Oral, Bedtime traZODONE 100 mg Tab, See Instructions Allergies Rondec (Unknown) amoxicillin (Unknown) Social History Tobacco Never (less than 100 in lifetime) Tobacco Use:. Never Smokeless Tobacco Use:. Household tobacco concerns: No., 05/23/2023 Family History Depression: Mother. Hypothyroidism: Father. Primary malignant neoplasm of female breast: Mother. [facility] Comment on above: Result Comment: Elec tronically Signed By: Nova Randhawa\.br\Date and Time Signed: 05/23/23 08:40 EST [place] 05-13-2023 Consent [id number] F [facility] Nurse Consultation Noteon Nurse Consultation Note Physical Exam patient mother brought in Depo-Provera 150mg/ml, pt injection well. Medications medroxyPROGESTERone 150 mg/mL IM Susp, 150 mg= 1 mL, IntraMuscular, q3mo, 3 refills Risperdal 1 mg Tab, 1 mg= 1 tab(s), Oral, Daily Risperdal 3 mg Tab, 3 mg= 1 tab(s), Oral, Bedtime Allergies Rondec (Unknown) amoxicillin (Unknown) [facility] Consultation Noteon 05-11-20 Consultation Note [id number] F [facility] - Clinical Noteon Retail - Clinical Note [id number]#1.00TIF F [facility] Consultation Noteon 02-18-20 Consultation Note [id number]#1.00CD: 127 [facility] Consultation Noteon 01-25-20 Consultation Note [id number]: 127 [facility] [place] 12-29-2022 Consent [id number]: 127 [facility] Nurse Consultation Noteon Nurse Consultation Note Reason for Visit Here for depo provera injection, medication provided by the patient Medications medroxyPROGESTERone 150 mg/mL IM Susp, 150 mg= 1 mL, IntraMuscular, q3mo, 3 refills Risperdal 1 mg Tab, 1 mg= 1 tab(s), Oral, Daily Risperdal 3 mg Tab, 3 mg= 1 tab(s), Oral, Bedtime Allergies Rondec (Unknown) amoxicillin (Unknown) [facility] Consultation Noteon 12-23-19 Consultation Note [id number]: 127 [facility] Ambulatory Visit Summaryon 0 12-20-2022 Ambulatory Visit Summary DEMETRIA BERRY :1990 Visit Date:12/20/2022 Ambulatory Visit Instructions Your Diagnosis Rash BMI 20.0-20.9, adult Non-smoker Menorrhagia Your Care Team Attending Physician - Nova Randhawa Primary Care Physician - Nova Randhawa This Is Your Medications List medroxyPROGESTERone (medroxyPROGESTERone 150 mg/mL IM Susp) risperidone (Risperdal 1 mg Tab) risperidone (Risperdal 3 mg Tab) Procedures Performed Tibia and fibula (combined site) (06/13/2017), Surgery. Discharge Vitals Heart Rate (Peripheral) 88 Blood Pressure 100/68 Height 148.8 cm Height 59 in Weight 44.6 kg Weight 98.12 lb BMI 20.14 Medications What How Much When Instructions Unchanged medroxyPROGESTERone (medroxyPROGESTERone 150 mg/ mL IM Susp) 1 Milliliter Intramuscular Every 3 months Pickup at [facility]/pharmacy #[id number] Unchanged risperidone (Risperdal 1 mg Tab) 1 Tablets By Mouth Every day Unchanged risperidone (Risperdal 3 mg Tab) 1 Tablets By Mouth At bedtime Pharmacy Information [facility]/pharmacy #[id number]: [address], [place] [id number] [phone] Medications and Immunizations Administered Given triamcinolone acetonide 40 mg/mL Inj Susp, 40 mg, IntraMuscular. For: Rash, BMI 20.0-20.9, adult, Non-smoker Allergies Rondec (Unknown) amoxicillin (Unknown) Problems Ongoing - Any problem that you are currently receiving treatment for. Autistic disorder Dementia Depression Diarrhea Down syndrome, unspecified Hidradenitis suppurativa Incontinence without sensory awareness Manic disorder Menorrhagia Oppositional defiant disorder Orthostatic hypotension Other specified persistent mood disorders Premenstrual tension Rash Sleep disorder Umbilical hernia Vomiting Normal [facility] [place] 12-20-2022 Consent [id number]: 127 Normal [facility] Family Medicine Office/Clini c Noteon 12-20-2022 Family Medicine Office/Clinic Note Chief Complaint pt here for rash HPI Staff demetria is a 32 year old female presenting with a rash Duration: Rash covering back/chest, mother states she has had this for years but with the heat it gets worse New or Recurrent: recurrent Questions/Concerns: Mother states care center wont allow her back without a note stating it isn't contagious. Mother states pt gets a depo Provera shot in office. i advised here i would check Dr zapien old records to see when the last time she had shot. History of Present Illness pt presents today with rash on back and chest Review of Systems ROS - Provider Constitutional: no fever, no chills, no sweats, no fatigue Respiratory: no shortness of breath, no cough, no orthopnea, no wheezing. Cardiovascular: no chest pain, no palpitations, no edema. Neurologic: no headache, no dizziness, no numbness, no weakness. skin: rash on back and chest Physical Exam Vitals & Measurements HR: 88(Peripheral) BP: 100/68 SpO2: 97% HT: 59 in HT: 148.8 cm WT: 44.6 kg WT: 98.12 lb BMI: 20.14 General: alert, no acute distress ENMT: oral mucosa moist, no pharyngeal erythema or exudate Cardiovascular: regular rate and rhythm, normal peripheral perfusion Respiratory: Lungs CTA, respirations non labored Extremities: no deformity, no trauma Neurological: oriented x 4, LOC appropriate for age, CN II-XII intact, motor strength equal & normal bilaterally, speech normal skin: heat rash on chest and back Assessment/Plan 1. Rash (R21: Rash and other nonspecific skin eruption) pt presents today with rash on back and chest. The care center said she could not return until she was cleared by her provider. The rash appears to be a heat rash. mom states she has this all the time. I do not feel she is contagious. A note was provided to mom to clear her to return. Will give kenalog injection in office today. all questions answered. RTC as needed Ordered: triamcinolone, 40 mg = 1 mL, Injection, IntraMuscular, Once, Stop date 12/20/22 9:27:00 EDT, Routine, Start date 12/20/22 9:27:00 EDT, 12/20/22 9:27:00 EDT 2. BMI 20.0-20.9, adult (Z68.20: Body mass index [BMI] 20.0-20.9, adult) BMI education complete Ordered: triamcinolone, 40 mg = 1 mL, Injection, IntraMuscular, Once, Stop date 12/20/22 9:27:00 EDT, Routine, Start date 12/20/22 9:27:00 EDT, 12/20/22 9:27:00 EDT 3. Non-smoker (Z78.9: Other specified health status) continue not smoking Ordered: triamcinolone, 40 mg = 1 mL, Injection, IntraMuscular, Once, Stop date 12/20/22 9:27:00 EDT, Routine, Start date 12/20/22 9:27:00 EDT, 12/20/22 9:27:00 EDT 4. Menorrhagia (N92.0: Excessive and frequent menstruation with regular cycle) will order depo,. pt to return for injection when she is due Orders: medroxyPROGESTERone, 150 mg = 1 mL, IntraMuscular, q3mo, # 1 mL, Refills(s) 3, Pharmacy: [facility]/pharmacy #[id number], 148.8, cm, 12/20/22 8:49:00 EDT, Height/Length Dosing, 44.6, kg, 12/20/22 8:57:00 EDT, Weight Dosing Follow-up No qualifying data available Problem List/Past Medical History Ongoing Autistic disorder Dementia Depression Diarrhea Down syndrome, unspecified Hidradenitis suppurativa Incontinence without sensory awareness Manic disorder Menorrhagia Oppositional defiant disorder Orthostatic hypotension Other specified persistent mood disorders Premenstrual tension Rash Sleep disorder Umbilical hernia Vomiting Historical No qualifying data Procedure/Surgical History Tibia and fibula (combined site) (06/13/2017), Surgery. Medications medroxyPROGESTERone 150 mg/mL IM Susp, 150 mg= 1 mL, IntraMuscular, q3mo, 3 refills Risperdal 1 mg Tab, 1 mg= 1 tab(s), Oral, Daily Risperdal 3 mg Tab, 3 mg= 1 tab(s), Oral, Bedtime Allergies Rondec (Unknown) amoxicillin (Unknown) Social History Tobacco Never (less than 100 in lifetime) Tobacco Use:. Never Smokeless Tobacco Use:. Household tobacco concerns: No., 12/20/2022 Family History Depression: Mother. Hypothyroidism: Father. Primary malignant neoplasm of female breast: Mother. Normal [facility] Comment on above: Result Comment: Elec tronically Signed By: Nova Randhawa\.br\Date and Time Signed: 12/20/22 09:31 EDT Provider Letteron 12-20-2022 Provider Letter (Inserted Image. Sunshine ble to display) [address] [place], [place] [id number] December 20, 2022 DEMETRIA BERRY [address] [place] [address] : 1990 To Whom It May Concern, Demetria was seen in my office today. Her rash appears to be a heat rash. I do not feel she is contagious. If you have any questions, please do not hesitate to call me at [phone]. Thank you. Sincerely, HELEN Anglin [facility] ED Note-Physicianon 12-01-19 ED Note-Physician [id number]:1 27 [facility] Lab Reportson 11-30-2022 Lab Reports [id number]: 127 [facility] Family Medicine Office/Clini c Noteon 11-24-2022 Family Medicine Office/Clinic Note Chief Complaint pt here to establish care HPI Staff Demetria is a 32 year old female presenting to establish care Establish Care: History: Any previous diagnosis: Down syndrome History of seeing any specialist: When was your last doctors visit: Last provider: Dr Chandler Any recent labs: unable to obtain vital signs due to patient shaking/cooperation Acute: Current issues/complaints: 3 days mother states Fever/Diarrhea....pt threw up today around lunch time. at home temp mother stats was 97.0 History of Present Illness pt presents today with mother c/o diarrhea and vomiting for 2 days. she is now shivering and holding her belly Review of Systems ROS - Provider Constitutional: yes fever, yes chills, no sweats, no fatigue Respiratory: no shortness of breath, no cough, no orthopnea, no wheezing. Cardiovascular: no chest pain, no palpitations, no edema. Neurologic: no headache, no dizziness, no numbness, no weakness. GI: diarrhea, vomiting Physical Exam Vitals & Measurements T: 37.5 ?C(Tympanic) HT: 59 in HT: 148.8 cm WT: 45.6 kg WT: 100.32 lb BMI: 20.59 General: alert, , holding her belly, shaking from chills ENMT: oral mucosa moist, no pharyngeal erythema or exudate Cardiovascular: regular rate and rhythm, normal peripheral perfusion Respiratory: Lungs CTA, respirations non labored Extremities: no deformity, no trauma Neurological: oriented x 4, LOC appropriate for age, CN II-XII intact, motor strength equal & normal bilaterally, speech normal : foul smelling diarrhea, vomited after lunch Assessment/Plan 1. Diarrhea (R19.7: Diarrhea, unspecified) pt presents today with mother and father. she is developmentally delayed and goes to a [facility] during the day. she has had diarrhea and vomiting for two days. her diaper is currently full of foul smelling loose stool. And she vomited before coming to office. pt is holding her belly and visibly shivering from body chills. body is warm to touch as well. will send to ER for IV hydration. all questions answered. RTC as needed. note provided to excuse her from school until tuesday. 2. Vomiting (R11.10: Vomiting, unspecified) vomiting for 2 days. sent to ER for dehydration 3. BMI 20.0-20.9, adult (Z68.20: Body mass index [BMI] 20.0-20.9, adult) BMI education complete Follow-up No qualifying data available Problem List/Past Medical History Ongoing Autistic disorder Dementia Depression Diarrhea Down syndrome, unspecified Hidradenitis suppurativa Incontinence without sensory awareness Manic disorder Oppositional defiant disorder Orthostatic hypotension Other specified persistent mood disorders Premenstrual tension Sleep disorder Umbilical hernia Vomiting Historical No qualifying data Procedure/Surgical History Tibia and fibula (combined site) (06/13/2017), Surgery. Medications Risperdal 1 mg Tab, 1 mg= 1 tab(s), Oral, Daily Risperdal 3 mg Tab, 3 mg= 1 tab(s), Oral, Bedtime traZODONE 100 mg Tab, 300 mg= 3 tab(s), Oral, Once a day (at bedtime) Allergies Rondec (Unknown) amoxicillin (Unknown) Social History Tobacco Never (less than 100 in lifetime) Tobacco Use:. Never Smokeless Tobacco Use:., 11/24/2022 Family History Depression: Mother. Hypothyroidism: Father. Primary malignant neoplasm of female breast: Mother. [facility] Comment on above: Result Comment: Elec tronically Signed By: Nova Randhawa\.br\Date and Time Signed: 11/24/22 13:24 EDT Provider Letteron 11-24-2022 Provider Letter (Inserted Image. Sunshine ble to display) November 24, 2022 DEMETRIA BERRY [address] [place] [id number] : 1990 To Whom It May Concern, Please excuse above patient from day hab on Tuesday11-23-22 through 11-29-22 due to medical. Date of Illness: From: _ 11-23-22 To: _ 11-29-22 May Return to Work On: 11-30-22 Restrictions: _ Comments: _ Sincerely, Family Medicine [address] [address] [facility] Physician Referralon 023 Physician Referral [id number] :127 [facility] Ambulatory Visit Summaryon 0 10-29-2022 Ambulatory Visit Summary DEMETRIA BERRY :1990 Visit Date:10/29/2022 Ambulatory Visit Instructions Your Diagnosis Dementia Autistic disorder Down syndrome, unspecified Incontinence without sensory awareness BMI 20.0-20.9, adult Your Care Team Attending Physician - Nova Randhawa Primary Care Physician - Nova Randhawa This Is Your Medications List risperidone (Risperdal 1 mg Tab) risperidone (Risperdal 3 mg Tab) trazodone (traZODONE 100 mg Tab) Procedures Performed Tibia and fibula (combined site) (06/13/2017), Surgery. Discharge Vitals Heart Rate (Peripheral) 72 Respiratory Rate 16 Blood Pressure 102/66 Height 147.32 cm Height 58 in Weight 45.5 kg Weight 100.1 lb BMI 20.96 Medications What How Much When Instructions Changed risperidone (Risperdal 1 mg Tab) 1 Tablets By Mouth Every day Changed risperidone (Risperdal 3 mg Tab) 1 Tablets By Mouth At bedtime Unchanged trazodone (traZODONE 100 mg Tab) 3 Tablets By Mouth Once a day (at bedtime) Duration: 30 Days Allergies Rondec (Unknown) amoxicillin (Unknown) Problems Ongoing - Any problem that you are currently receiving treatment for. Autistic disorder Dementia Depression Down syndrome, unspecified Hidradenitis suppurativa Incontinence without sensory awareness Manic disorder Oppositional defiant disorder Orthostatic hypotension Other specified persistent mood disorders Premenstrual tension Sleep disorder Umbilical hernia Normal [facility] Family Medicine Office/Clini c Noteon 10-29-2022 Family Medicine Office/Clinic Note Chief Complaint follow up at testing dxed with autism, alzeimers and OCD HPI Staff Establish Care: History: Any previous diagnosis: Down's syndrome, orthostatic hypotension,oppositional defiant disorder History of seeing any specialist: When was your last doctors visit: 08/09/22 Last provider: Dr. Chandler Any recent labs: none Acute: Current issues/complaints: Had her annual exam at the [facility] and was dxed with autism, OCD and Alzeimer's Health Maintenance UTD: Pelvic/Pap: doesn't get paps History of Present Illness pt presents with parents today to establish care. She had her recent wellness exam at the [facility] and was diagnosed with autism, OCD and Alzheimer's. parents are requesting neuro referral Review of Systems ROS - Provider Constitutional: no fever, no chills, no sweats, no fatigue Respiratory: no shortness of breath, no cough, no orthopnea, no wheezing. Cardiovascular: no chest pain, no palpitations, no edema. Neurologic: no headache, no dizziness, no numbness, no weakness., newly diagnosed with Alzheimer's Physical Exam Vitals & Measurements HR: 72(Peripheral) RR: 16 BP: 102/66 SpO2: 98% HT: 58 in HT: 147.32 cm WT: 45.5 kg WT: 100.1 lb BMI: 20.96 General: alert, no acute distress ENMT: oral mucosa moist, no pharyngeal erythema or exudate Cardiovascular: regular rate and rhythm, normal peripheral perfusion Respiratory: Lungs CTA, respirations non labored Extremities: no deformity, no trauma patient is non verbal due to down's syndrome, rocks back and forth during visit. Assessment/Plan 1. Dementia (F03.90: Unspecified dementia, unspecified severity, without behavioral disturbance, psychotic disturbance, mood disturbance, and anxiety) pt presents with her parents today to establish care. she was previously seen by Dr. Chandler. the patient had a recent wellness exam at the [facility] and her parents were told she has dementia/Alzheimer's, OCD and autism. Mom is very concerned about this. Mom has had a stroke and dad has dementia as well. is requesting referral to MARCEL Oliver in [place] office. Ordered: Body Mass Index (BMI) documented 3008F Current tobacco non-user 1036F [employer] External Ambulatory Referral Influenza immunization administered or previously received 4274F Most recent diastolic blood pressure <80 mm Hg 3078F Systolic BP <130 mm Hg (Most Recent) 3074F 2. Autistic disorder (F84.0: Autistic disorder) will be follow by psych for new diagnosis of autism and OCD Ordered: Body Mass Index (BMI) documented 3008F Current tobacco non-user 1036F [employer] External Ambulatory Referral Influenza immunization administered or previously received 4274F Most recent diastolic blood pressure <80 mm Hg 3078F Systolic BP <130 mm Hg (Most Recent) 3074F 3. Down syndrome, unspecified (Q90.9: Down syndrome, unspecified) pt is doing well physically. rocks back and forth during visit and is non verbal Ordered: Body Mass Index (BMI) documented 3008F Current tobacco non-user 1036F [employer] External Ambulatory Referral Influenza immunization administered or previously received 4274F Most recent diastolic blood pressure <80 mm Hg 3078F Systolic BP <130 mm Hg (Most Recent) 3074F 7. BMI 20.0-20.9, adult (Z68.20: Body mass index [BMI] 20.0-20.9, adult) BMI education complete Ordered: Body Mass Index (BMI) documented 3008F Current tobacco non-user 1036F [employer] External Ambulatory Referral Influenza immunization administered or previously received 4274F Most recent diastolic blood pressure <80 mm Hg 3078F Systolic BP <130 mm Hg (Most Recent) 3074F Follow-up No qualifying data available Problem List/Past Medical History Ongoing Autistic disorder Dementia Depression Down syndrome, unspecified Hidradenitis suppurativa Incontinence without sensory awareness Manic disorder Oppositional defiant disorder Orthostatic hypotension Other specified persistent mood disorders Premenstrual tension Sleep disorder Umbilical hernia Historical No qualifying data Procedure/Surgical History Tibia and fibula (combined site) (06/13/2017), Surgery. Medications Risperdal 1 mg Tab, 1 mg= 1 tab(s), Oral, Daily Risperdal 3 mg Tab, 3 mg= 1 tab(s), Oral, Bedtime traZODONE 100 mg Tab, 300 mg= 3 tab(s), Oral, Once a day (at bedtime) Allergies Rondec (Unknown) amoxicillin (Unknown) Social History Tobacco Never (less than 100 in lifetime) Tobacco Use:. Never Smokeless Tobacco Use:., 10/29/2022 Family History Depression: Mother. Hypothyroidism: Father. Primary malignant neoplasm of female breast: Mother. Normal [facility] Comment on above: Result Comment: Elec tronically Signed By: Nova Randhawa\.br\Date and Time Signed: 10/29/22 15:24 EDT GLUCOSE BLOODon 02-24-2022 Glucose [Mass/Vol] 96 mg/dL Normal 74-106 [facility] Comment on above: Performed By: #### G CHERIE, LIPID #### [facility] [address], [place] [address] Dr. Lara Machuca LIPID PROFILEon 02-24-2022 CHOL-HDL RATIO NORM SEE BELOW Normal [facility] Comment on above: Result Comment: 3.3 - 4.4 LOW RISK 4.4 - 7.1 AVERAGE RISK 7.1 - 11.0 MODERATE RISK >11.0 HIGH RISK Performed By: #### G CHERIE, LIPID #### [facility] [address] [place], [place] [address] Dr. Lara Machuca Cholesterol [Mass/Vol] 177 mg/dL Normal <=200 [facility] Comment on above: Performed By: #### G CHERIE, LIPID #### [facility] [address], [place] [address] Dr. Lara Machuca Cholesterol in HDL [Mass/Vol] 54 mg/dL Normal 40-60 [facility] Comment on above: Performed By: #### G CHERIE, LIPID #### [facility] [address] [place] [address] [address] Lara Machuca Cholesterol in LDL [Mass/Vol] 113.4 mg/dL Normal [facility] Comment on above: Performed By: #### G CHERIE, LIPID #### [facility] [address] [place] [address] [address] Lara Machuca Cholesterol.total /Cholesterol in HDL [Mass ratio] 3.3 {ratio} Normal [facility] Comment on above: Performed By: #### G CHERIE, LIPID #### [facility] [address] [place] [address] Dr. Lara Machuca HDL NORMAL > or = 60 mg/dl - LO W CARDIOVASCULAR RISK <40 mg/dl - HIGH CARDIOVASCULAR RISK Normal [facility] Comment on above: Performed By: #### G CHERIE, LIPID #### [facility] [address] [place] [address] Dr. Lara Machuca LDL CALC NORMAL SEE BELOW Normal [facility] Comment on above: Result Comment: <100 mg/dl OPTIMAL 100 - 129 mg/dl NEAR OR ABOVE OPTIMAL 130 - 159 mg/dl BORDERLINE HIGH 160 - 189 mg/dl HIGH >190 mg/dl VERY HIGH Performed By: #### G CHERIE, LIPID #### [facility] [address] [place] [address] [address] Lara Machuca Triglyceride [Mass/Vol] 48 mg/dL Normal <=150 [facility] Comment on above: Performed By: #### G CHERIE, LIPID #### [facility] [address] [place] [address] Dr. Lara Machuca VLDL CALC 9.6 mg/dL Normal [facility] Comment on above: Performed By: #### G CHERIE, LIPID #### [facility] [address] [place] [address] Dr. Lara Machuca Covid-19 PCR (CVDTB)on 01-12 SARS-CoV-2 (COVID-19) RNA [place]+probe Ql (Unsp spec) Not detected Normal NOT DETECTED [facility] Comment on above: Result Comment: This test is not yet approved or cleared by the [place] FDA. When there are no FDA-approved or cleared tests available, and other criteria are met, FDA can make tests available under an emergency access mechanism called an Emergency Use Authorization (EUA). The EUA for this test is supported by the [place] of Health and Human Service's (HHS's) declaration that circumstances exist to justify the emergency use of in vitro diagnostics for the detection and/or diagnosis of the virus that causes COVID-19. This EUA will remain in effect (meaning this test can be used) for the duration of the COVID-19 declaration justifying emergency of IVDs, unless it is terminated or revoked by FDA (after which the test may no longer be used). When diagnostic testing is negative, the possibility of a false negative should be considered in the context of a patient's recent exposures and the presence of clinical signs and symptoms consistent with SARS-CoV-2. Performed By: #### C VDTB #### [facility] [address] [place] [address] Dr. Lara Machuca Covid-19 PCR ([facility])on SARS-CoV-2 (COVID-19) RNA [place]+probe Ql (Unsp spec) Not detected Normal NOT DETECTED [facility] Comment on above: Result Comment: This test is not yet approved or cleared by the [place] FDA. When there are no FDA-approved or cleared tests available, and other criteria are met, FDA can make tests available under an emergency access mechanism called an Emergency Use Authorization (EUA). The EUA for this test is supported by the [place] of Health and Human Service's (HHS's) declaration that circumstances exist to justify the emergency use of in vitro diagnostics for the detection and/or diagnosis of the virus that causes COVID-19. This EUA will remain in effect (meaning this test can be used) for the duration of the COVID-19 declaration justifying emergency of IVDs, unless it is terminated or revoked by FDA (after which the test may no longer be used). When diagnostic testing is negative, the possibility of a false negative should be considered in the context of a patient's recent exposures and the presence of clinical signs and symptoms consistent with SARS-CoV-2. Performed By: #### C VDTBH #### [facility] [address] [place] [address] [address] Lara Machuca GLUCOSE BLOODon 12-10-2021 Glucose [Mass/Vol] 99 mg/dL Normal 74-106 [facility] Comment on above: Performed By: #### L IPID, GLUC #### [facility] [address] [place] [address] Dr. Lara Machuca LIPID PROFILEon 12-10-2021 CHOL-HDL RATIO NORM SEE BELOW Normal [facility] Comment on above: Result Comment: 3.3 - 4.4 LOW RISK 4.4 - 7.1 AVERAGE RISK 7.1 - 11.0 MODERATE RISK >11.0 HIGH RISK Performed By: #### L IPID, GLUC #### [facility] [address] [place] [address] Dr. Lara Machuca Cholesterol [Mass/Vol] 174 mg/dL Normal <=200 [facility] Comment on above: Performed By: #### L IPID, GLUC #### [facility] [address] [place] [address] Dr. Lara Machuca Cholesterol in HDL [Mass/Vol] 48 mg/dL Normal 40-60 [facility] Comment on above: Performed By: #### L IPID, GLUC #### [facility] [address] [place] [address] Dr. Lara Machuca Cholesterol in LDL [Mass/Vol] 114.6 mg/dL Normal [facility] Comment on above: Performed By: #### L IPID, GLUC #### [facility] [address] [place] [address] Dr. Lara Machuca Cholesterol.total /Cholesterol in HDL [Mass ratio] 3.6 {ratio} Normal [facility] Comment on above: Performed By: #### L IPID, GLUC #### [facility] [address] [place] [address] Dr. Lara Machuca HDL NORMAL > or = 60 mg/dl - LO W CARDIOVASCULAR RISK <40 mg/dl - HIGH CARDIOVASCULAR RISK Normal [facility] Comment on above: Performed By: #### L IPID, GLUC #### [facility] [address] [place] [address] Dr. Lara Machuca LDL CALC NORMAL SEE BELOW Normal [facility] Comment on above: Result Comment: <100 mg/dl OPTIMAL 100 - 129 mg/dl NEAR OR ABOVE OPTIMAL 130 - 159 mg/dl BORDERLINE HIGH 160 - 189 mg/dl HIGH >190 mg/dl VERY HIGH Performed By: #### L IPID, GLUC #### [facility] [address] [place] [address] Dr. Lara Machuca Triglyceride [Mass/Vol] 57 mg/dL Normal <=150 [facility] Comment on above: Performed By: #### L IPID, GLUC #### [facility] [address] [place] [address] Dr. Lara Machuca VLDL CALC 11.4 mg/dL Normal [facility] Comment on above: Performed By: #### L IPID, GLUC #### [facility] [address] [place] [address] Dr. Lara Machuca Covid-19 PCR ([facility])on SARS-CoV-2 (COVID-19) RNA [place]+probe Ql (Unsp spec) Not detected Normal NOT DETECTED [facility] Comment on above: Result Comment: This test is not yet approved or cleared by the [place] FDA. When there are no FDA-approved or cleared tests available, and other criteria are met, FDA can make tests available under an emergency access mechanism called an Emergency Use Authorization (EUA). The EUA for this test is supported by the [place] of Health and Human Service's (HHS's) declaration that circumstances exist to justify the emergency use of in vitro diagnostics for the detection and/or diagnosis of the virus that causes COVID-19. This EUA will remain in effect (meaning this test can be used) for the duration of the COVID-19 declaration justifying emergency of IVDs, unless it is terminated or revoked by FDA (after which the test may no longer be used). When diagnostic testing is negative, the possibility of a false negative should be considered in the context of a patient's recent exposures and the presence of clinical signs and symptoms consistent with SARS-CoV-2. Performed By: #### C VDTB #### [facility] [address] [address] [address] Lara Machuca TIBIA FIBULA LEFTon 05-14-20 19 TIBIA FIBULA LEFT [facility] Department of Radiology [address] [place] [phone] == Patient Name: DEMETRIA BERRY : 1990 Sex: F Age: Race: White Pt. Location: 84 Patient Status: Ordered Date: 05/14/2019 10:40:00 AM Completed Date: 05/14/2019 10:50 AM Requesting Provider: FAVIOLA ARIZA Attending Provider: Report Copy To: Signs & Symptoms: S82.302D Unsp fx lower end of l tibia, subs for clos fx w routn heal I10 History: Mai Comments: , , , Ordering Katie - FAVIOLA ARIZA PA-C , Exam: TIBIA FIBULA LEFT == TIBIA FIBULA LEFT 05/14/2019 10:50 AM EST SIGNS AND SYMPTOMS: S82.302D Unsp fx lower end of l tibia, subs for clos fx w routn heal I10 TECHNOLOGIST COMMENTS: follow/up check healing surgery 04/25/2019 to left lower leg. QUESTION FOR THE RADIOLOGIST: , , , Ordering Katie - FAVIOLA ARIZA PA-C , PROTOCOL: AP(PA) and Lateral views were obtained. COMPARISON: Intraoperative study April 25. FINDINGS: Intramedullary stacy is remains. Distal diaphyseal fracture is healing in good alignment. No hardware capitation noted. IMPRESSION: Healing fracture in good alignment. No complication noted. Electronically signed by:German Parker. Transcribed by: [email or web address], User Resident: Electronically Signed by: GERMAN PARKER @ 05/14/2019 03:29 PM Normal [facility] Comment on above: Order Comment: , , = ========= , Ordering Provider - FAVIOLA ARIZA PA-C , Operative Reporton [id number] Operative Report MR#: [id number] S [facility] Pt. Name: Demetria Berry Room #: 0C Discharge Date: Birthdate: 1990 OPERATIVE REPORT DATE OF SURGERY: 04/25/2019 SURGEON: Andrew Castro M.D. ASSISTANTS: 1. Kunal Barragan M.D. 2. Mary Ma M.D. PREOPERATIVE DIAGNOSES: Left tibial shaft fracture, status post intramedullary nailing with symptomatic retained hardware. POSTOPERATIVE DIAGNOSES: Left tibial shaft fracture, status post intramedullary nailing with symptomatic retained hardware. PROCEDURE PERFORMED: Removal of proximal screw from tibial nail. ANESTHESIA: General. FLUIDS: Per anesthesia record. PREOPERATIVE ANTIBIOTICS: Ancef. INDICATIONS FOR PROCEDURE: This is a 28-year-old female, who sustained a closed left tibial shaft fracture, which was treated with intramedullary nailing on 06/23/2018. She has done well overall since that time; however, recently she had developing prominence of the proximal screw with tenting of the skin overlying the screw. She was recently seen back in clinic, at which time, decision was made to proceed with removal of hardware or removal of the screw. DESCRIPTION OF PROCEDURE: The patient brought to the preoperative holding area where she was met by the surgical team and the operative site was marked. Risks, benefits, and alternatives were again discussed with the patient and medical decision makers, and they elected to proceed with the procedure. She was subsequently taken back to the operating room where she was placed supine on the operative table with a bump underneath her ipsilateral hip. The left leg was prepped and draped in normal sterile fashion. The screw was easily palpable beneath the skin. A time-out was called indicating patient, laterality, and procedure to be performed. The procedure was then begun by making a small incision through the distal aspect of the previous surgical incision. A small amount of dark-appearing bursal fluid was noted as the screw was encountered and a swab sample was taken and sent for culture. The proximal screw was then removed with no complications. The wound was copiously irrigated with Betadine and normal saline. The incision was then closed with a single 4-0 Novafil horizontal mattress suture. This was then dressed with Xeroform gauze, Tegaderm, Kerlix, and an Ayan wrap. The patient subsequently awakened from anesthesia with no complications, and transferred to PACU for additional management. Dr. Castro was present for critical portions of the procedure and was immediately available for assistance at all times. POSTOPERATIVE PLAN: The patient will be weightbearing as tolerated to her left lower extremity. She will be instructed to keep the dressing intact for 4-5 days, at which time she may remove the dressing and shower. There are no specific restrictions for her at this time, and she may return to her day group starting tomorrow with the incision well covered. Electronically Signed by: Andrew Castro M.D. 04/28/2019 12:12 P Andrew Castro M.D. I was present for the bashir and critical portions and I was otherwise immediately available to assist. Date Dict: 04/25/2019/04:15 P/Kunal Barragan MD Date Trans: 04/26/2019 02:46 A/diana [id number] cc: Yanely Chandler M.D. [address] [place] [phone] [facility] *ANAEROBIC CULTUREon 019 *ANAEROBIC CULTURE Clinical Report: (D) Specimen/Source: SWAB/INTRAOP SPEC Collected: 04/25/2019 14:27 Status: Final Last Updated: 04/30/2019 08:52 (1) 1. Left tibia screw CULT RES (Final) No Anaerobes Isolated 5 Days Normal [facility] Comment on above: Order Comment: 1. Le ft tibia screw Performed By: #### 3 [id number] #### [address] *WOUND CULTUREon 04-25-2019 *WOUND CULTURE Clinical Report: (D) Specimen/Source: WOUND/INTRAOP SPEC Collected: 04/25/2019 14:27 Status: Final Last Updated: 04/30/2019 08:31 (1) 1. Left tibia screw GRAM (Final) Rare Polys No Bacteria Seen CULT RES (Final) No Growth Day 5 Normal [facility] Comment on above: Order Comment: 1. Le ft tibia screw Performed By: #### 3 0343 #### [address] POC GLUCOSE LABon 04-25-2019 Glucose [Mass/Vol] 83 mg/dL Normal 70-100 [facility] Comment on above: Performed By: #### 8 [id number] #### [address] TIBIA FIBULA LEFTon 04-25-20 19 TIBIA FIBULA LEFT [facility] Department of Radiology [address] [place] [phone] == Patient Name: DEMETRIA BERRY : 1990 Sex: F Age: Race: White Pt. Location: Patient Status: O Ordered Date: 04/25/2019 7:25:00 AM Completed Date: 04/25/2019 02:30 PM Requesting Provider: ANDREW CASTRO Attending Provider: ANDREW CASTRO Report Copy To: Signs & Symptoms: hardware removal left tibia with History: hardware removal left tibia with Comments: hardware removal left tibia with Exam: TIBIA FIBULA LEFT == TIBIA FIBULA LEFT 04/25/2019 2:30 PM EST SIGNS AND SYMPTOMS: hardware removal left tibia with TECHNOLOGIST COMMENTS: Intra-op c-arm, hardware removal left tibia with Fluoro Time: 2 sec. C-arm out at 2:30 pm QUESTION FOR THE RADIOLOGIST: hardware removal left tibia with PROTOCOL: AP(PA) and Lateral views were obtained. COMPARISON: None FINDINGS: Soft tissues: Bones: Joints: IMPRESSION: Documentation Electronically signed by:Adeel Cuevas. Transcribed by: [email or web address], User Resident: Electronically Signed by: ADEEL CUEVAS @ 04/25/2019 03:21 PM Normal [facility] Comment on above: Order Comment: hardw are removal left tibia with Encounters Encounter Date Encounter Type Care Provider Facility Start: 08-15-2023 End: 08-16-2023 ambulatory Nova L Yenny Facility:[facility] Start: 08-08-2023 End: 08-09-2023 ambulatory Nova L Yenny Facility:[facility] Start: 2023 End: 07-08-2023 ambulatory Nova L Yenny Facility:[facility] Start: 05-24-2023 ambulatory Dalton Alexandra F acility:[facility] Start: 05-23-2023 End: 05-24-2023 ambulatory Nova L Yenny Facility:[facility] Start: 05-12-2023 End: 05-13-2023 ambulatory Nova L Yenny Facility:[facility] Start: 12-28-2022 End: 12-29-2022 ambulatory Nova L Yenny Facility:[facility] Start: 12-20-2022 End: 12-21-2022 ambulatory Nova L Yenny Facility: [facility] Start: 11-29-2022 End: 11-30-2022 ambulatory Nova L Yenny Facility: [facility] Start: 11-24-2022 End: 11-25-2022 ambulatory Nova L Yenny Facility:[facility] Start: 10-29-2022 End: 10-30-2022 ambulatory Nova L Yenny Facility:[facility] Start: 10-27-2022 ambulatory Nova Yenny Facility:[facility] Start: 02-24-2022 End: 02-25-2022 ambulatory JORDAN RAHMAN Facility:[facility] Start: 02-01-2022 End: 02-01-[address] YANELY CHANDLER Facility:[facility] Start: 01-13-2022 End: 01-13-[address] YANELY CHANDLER Facility:[facility] Start: 12-10-2021 End: 12-11-2021 ambulatory JORDAN RAHMAN Facility:[facility] Start: 05-13-2021 End: 05-13-[address] YANELY CHANDLER Facility:[facility] Start: 04-25-2019 End: 04-26-2019 Patient encounter procedure ANDREW CASTRO Facility:[facility] Start: 04-20-2019 End: 04-20-2019 Emergency department patient visit ANGELICA BARBOSAUNDERS Facility:[facility] Procedures Date Procedure Procedure Detail Performing Clinician Start: 04-25-2019 ANESTH LOWER LEG BONE SURG ROBERT MURRAY Start: 04-25-2019 REMOVAL OF SUPPORT IMPLANT ANDREW BRENDA Payers Date Payer Category Payer Self-pay 2021 Unknown [id number] 2015 [employer] ( [employer] others) [id number] 1990 Unknown [id number] 1990 Unknown [id number] [id number] 1990 Unknown [id number] 2.16.840.1.110119.3.579.2.593 1990 Unknown [id number] 2.16.840.1.122843.3.579.2.593 1990 Unknown [id number] 2.16.840.1.427682.3.579.2.593 1990 Unknown [id number] 2.16.840.1.103275.3.579.2.593 1990 Unknown [id number] 2.16.840.1.410008.3.579.2.593 1990 Unknown [id number] 2.16.840.1.962980.3.579.2.727 1990 Unknown [id number] 2.16.840.1.592142.3.579.2.727 1990 Unknown [id number] 2.16.840.1.458990.3.579.2.727 1990 Unknown [id number] 2.16.840.1.550016.3.579.2.727 1990 Unknown [id number] 2.16.840.1.027116.3.579.2.727 1990 Unknown [id number] 2.16.840.1.600918.3.579.2.727 1990 Unknown [id number] 2.16.840.1.643867.3.579.2.727 1990 Unknown [id number] 2.16.840.1.938893.3.579.2.727 1990 Unknown [id number] 2.16.840.1.688383.3.579.2.727 1988 Unknown [id number] [id number] 1959 [employer] ( and others) [id number] 1961 Medicaid [id number] 1961 Medicare [id number] Medicare [id number] Summary Purpose Family History No Family History Records FoundNo Family History Records FoundNo Family History Records FoundNo Family History Records Found Advance Directives No Advanced Directives Records FoundNo Advanced Directives Records FoundNo Advanced Directives Records FoundNo Advanced Directives Records Found Additional Source Comments INFORMATION SOURCE (unrecogn ized section and content) DATE CREATED AUTHOR 06/25/2019 [facility] DATE CREATED AUTHOR AUTHOR'S ORGANIZ ATION 04/10/2022 [facility] DATE CREATED AUTHOR AUTHOR'S ORGANIZ ATION 08/16/2023 [facility] DATE CREATED AUTHOR AUTHOR'S ORGANIZ ATION 08/27/2023 [facility] FOR RECORDS PERTAINING TO PATIENTS WHO ARE OR HAVE BEEN ENROLLED IN A CHEMICAL DEPENDENCY/SUBSTANCEABUSE PROGRAM, SOME INFORMATION MAY BE OMITTED. This clinical summary was aggregated from multiple sources. Caution should be exercised in using it in the provision of clinical care. This summary normalizes information from multiple sources, and as a consequence, information in this document may materially change the coding, format and clinical context of patient data. In addition, data may be omitted in some cases. CLINICAL DECISIONS SHOULD BE BASED ON THE PRIMARY CLINICAL RECORDS. [employer] [facility]. provides no warranty or guarantee of the accuracy or completeness of information in this document.
--- NOTE | 2023-09-05 19:26 | ED.GENADUL1 ---
HPI - General Adult General Chief complaint: Anxiety Stated complaint: Inconsolable Crying, Unknown Pain Time Seen by Provider: 09/05/23 18:09 History of Present Illness HPI narrative: patient has Down's syndrome. Parents states she has been crying on and off all day for no clear reason. She is non verbal. Parents states last time she had crying spells she had an ear infection. No vomiting. occ cough. no fever parents states she has been pulling at her ears Related Data Home Medications ?Medication ?Instructions ?Recorded ?Confirmed multivitamin (Daily Multi-Vitamin 1 tab PO DAILY 11/24/22 09/05/23 tablet) risperidone 1 mg tablet 1 mg PO DAILY 11/24/22 09/05/23 trazodone 100 mg tablet 150 mg PO DAILY PRN insomnia 11/24/22 09/05/23 medroxyprogesterone 150 mg/mL 150 mg IM .q3 months 09/05/23 09/05/23 intramuscular suspension memantine 10 mg tablet 10 mg PO BID 09/05/23 09/05/23 Allergies Allergy/AdvReac Type Severity Reaction Status Date / Time No Known Drug Allergies Allergy Verified 09/05/23 18:14 Review of Systems ROS Status of ROS 10 or more systems reviewed and unremarkable except as noted in history and below [facility] Social History Smoking status: Never smoker Exam Constitutional Vital Signs, click to edit/add: Last Vital Signs Temp 98.3 F 09/05/23 18:15 Pulse 80 09/05/23 18:15 Resp 14 09/05/23 18:15 BP 115/74 09/05/23 18:15 Pulse Ox 100 09/05/23 18:15 O2 Del Method Room Air 09/05/23 18:15 Common normals: no apparent distress, average body habitus, alert and well nourished HENMT Common normals: normocephalic and head/scalp atraumatic Eye Common normals: EOMs intact bilaterally and conjunctivae normal Respiratory Common normals: normal respiratory effort, no retractions, no use of accessory muscles and clear to auscultation bilaterally Cardio Common normals: regular rate, regular rhythm, S1 normal heart sound and S2 normal heart sound GI Common normals: Normal to inspection, nondistended, normoactive bowel sounds present, soft to palpation and non-tender Extremity Common normals: normal to inspection and full ROM Neuro [place] Coma Scale: other (MRDD) Common normals: moves all extremities and no focal motor deficits Course Vital Signs Vital signs: Vital Signs Temperature 98.3 F 09/05/23 18:15 Pulse Rate 80 09/05/23 18:15 Respiratory Rate 14 09/05/23 18:15 Blood Pressure 115/74 09/05/23 18:15 Pulse Oximetry 100 09/05/23 18:15 Oxygen Delivery Method Room Air 09/05/23 18:15 Temperature 98.3 F 09/05/23 18:15 Pulse Rate 80 09/05/23 18:15 Respiratory Rate 14 09/05/23 18:15 Blood Pressure 115/74 09/05/23 18:15 Pulse Oximetry 100 09/05/23 18:15 Oxygen Delivery Method Room Air 09/05/23 18:15 Medical Decision Making MDM Narrative Medical decision making narrative: patient has severe DOWNs syndrome. Not able to communicate but will cry out. States she has been crying on and off all day reminiscent to the last time she had an ear infection. Inspection of her ears limited by wax obstructing view bilaterally. Patient not cooperative with any attempt to remove wax. labs were drawn without acute findings. Staff were not able to obtain a urine. Patient wears diapers. Parents did not want to pursue trying to obtain urine specimen any further. Patient discharged home. Provided a prescription of keflex to cover possible ear infection. Advised close follow up with family doctor Lab Data Labs: Lab Results 09/05/23 Range/Units 19:55 WBC 6.7 (4.0-11.0) 10^3/uL RBC 3.78 L (4.20-5.40) 10^6/uL Hgb 13.1 (12.0-16.0) g/dL Hct 39.5 (36.0-48.0) % MCV 104.5 H (81.0-99.0) fL MCH 34.7 H (26.7-34.0) pg MCHC 33.2 (29.9-35.2) g/dL RDW 12.7 (11.0-15.0) % Plt Count 244 (150-450) 10^3/uL MPV 9.0 L (9.5-13.5) fL Neut % (Auto) 55.1 (43.0-75.0) % Lymph % (Auto) 34.6 (20.5-60.0) % [place] % (Auto) 7.8 (1.7-12.0) % Eos % (Auto) 1.0 (0.9-7.0) % Baso % (Auto) 1.2 (0.2-2.0) % Neut # (Auto) 3.7 (1.4-6.5) 10^3/uL Lymph # (Auto) 2.3 (1.2-3.8) 10^3/uL [place] # (Auto) 0.5 (0.3-0.8) 10^3/uL Eos # (Auto) 0.1 (0.0-0.7) 10^3/uL Baso # (Auto) 0.1 (0.0-0.1) 10^3/uL Abs Immat Gran (auto) 0.02 (0.00-0.03) 10^3/uL Imm/Tot Granulo (auto) 0.3 (0.0-0.5) % Sodium 140 (136-145) mmol/L Potassium 3.7 (3.5-5.1) mmol/L Chloride 105 (98-107) mmol/L Carbon Dioxide 28.8 (21.0-32.0) mmol/L Anion Gap 9.9 BUN 17.0 (7.0-18.0) mg/dL Creatinine 0.94 (0.55-1.02) mg/dL Est GFR ( Amer) >60 (>=60) Est GFR (Non-Af Amer) >60 (>=60) BUN/Creatinine Ratio 18.1 Glucose 89 (74-106) mg/dL Calcium 8.3 L (8.5-10.1) mg/dL Total Bilirubin 0.2 (0.2-1.0) mg/dL AST 20 (15-37) U/L ALT 22 (14-59) U/L Alkaline Phosphatase 71 (46-116) U/L Troponin I High Sens 5.0 (4.0-51.3) pg/mL Total Protein 7.0 (6.4-8.2) g/dL Albumin 3.2 L (3.4-5.0) g/dL Globulin 3.8 g/dL Albumin/Globulin Ratio 0.8 Lipase 41.0 (16.0-77.0) U/L Discharge Plan Discharge Stand Alone Forms: Portal Instructions Chief Complaint: Anxiety Clinical Impression: Acute ear pain Patient Disposition: Home, Self-Care Prescriptions / Home Meds: No Action multivitamin [Daily Multi-Vitamin] Tablet 1 tab PO DAILY risperidone 1 mg tablet 1 mg PO DAILY trazodone 100 mg tablet 150 mg PO DAILY PRN (Reason: insomnia) medroxyprogesterone 150 mg/mL suspension 150 mg IM .q3 months memantine 10 mg tablet 10 mg PO BID Print Language: Luxembourg[place] Instructions: Earache (ED) Additional Instructions: follow up with family doctor for recheck next couple of days Referrals: JACY BAER [Primary Care Provider] - 1 week
--- NOTE | 2023-09-05 20:03 | PC.NURSE ---
pt in restroom with guardian attempting for urine sample at this time. guardian states to this nurse that pt does wear brief for incontinence issues. new brief provided at this time and guardian denies needs of assistance.
[2023-09-05 20:16] LABS: Basophils Absolute Auto 0.1 10^3/uL (0.0-0.1); Basophils Percent Auto 1.2 % (0.2-2.0); Eosinophils Absolute Auto 0.1 10^3/uL (0.0-0.7); Hematocrit 39.5 % (36.0-48.0); Hemoglobin 13.1 g/dL (12.0-16.0); Immature Granulocytes Abs Auto 0.02 10^3/uL (0.00-0.03); Immature Granulocytes Pct Auto 0.3 % (0.0-0.5); Lymphocytes Absolute Auto 2.3 10^3/uL (1.2-3.8); Lymphocytes Percent Auto 34.6 % (20.5-60.0); Mean Corpuscular HGB Conc 33.2 g/dL (29.9-35.2); Mean Corpuscular Hemoglobin 34.7 pg (26.7-34.0); Mean Corpuscular Volume 104.5 fL (81.0-99.0); Monocytes Absolute Auto 0.5 10^3/uL (0.3-0.8); Monocytes Percent Auto 7.8 % (1.7-12.0); Neutrophils Absolute Auto 3.7 10^3/uL (1.4-6.5); Neutrophils Percent Auto 55.1 % (43.0-75.0); Platelet Count 244 10^3/uL (150-450); Red Blood Count 3.78 10^6/uL (4.20-5.40); Red Cell Distribution Width 12.7 % (11.0-15.0); White Blood Count 6.7 10^3/uL (4.0-11.0)
[2023-09-05 20:38] LABS: Alanine Aminotransferase 22 U/L (14-59); Albumin Globulin Ratio 0.8; Albumin Level 3.2 g/dL (3.4-5.0); Alkaline Phosphatase 71 U/L (46-116); Anion Gap 9.9; Aspartate Amino Transferase 20 U/L (15-37); BUN Creatinine Ratio 18.1; Bilirubin Total 0.2 mg/dL (0.2-1.0); Calcium 8.3 mg/dL (8.5-10.1); Carbon Dioxide 28.8 mmol/L (21.0-32.0); Chloride 105 mmol/L (98-107); Estimated GFR (African America >60 (>=60); Estimated GFR (Non-African Ame >60 (>=60); Globulin 3.8 g/dL; Glucose 89 mg/dL (74-106); Potassium 3.7 mmol/L (3.5-5.1); Sodium 140 mmol/L (136-145)
== END 2023-09-05 21:10 | disposition home or self-care (01) ==
PROVIDERS: Emergency Provider Internal Medicine; PCP Nurse Practitioner
DX: H92.09 Otalgia, unspecified ear (principal); Q90.9 Down syndrome, unspecified; Z79.899 Other long term (current) drug therapy
CPT/HCPCS: 36415; 80053; 83690; 84484; 85025; 99283

== ENCOUNTER 2024-09-14 07:29 | Outpatient (OUT) | payer OTHER, MEDICAID, SELFPAY ==
[2024-09-14 08:16] LABS: Bilirubin Urine NEGATIVE (NEGATIVE); Blood Urine NEGATIVE (NEGATIVE); Clarity Urine CLEAR (CLEAR); Color Urine LT. YELLOW (YELLOW); Glucose Urine UA NEGATIVE (NEGATIVE); Ketones Urine NEGATIVE (NEGATIVE); Leukocyte Esterase Urine SMALL (NEGATIVE); Nitrite Urine NEGATIVE (NEGATIVE); Protein Urine NEGATIVE (NEG/TRACE); Urobilinogen Urine 0.2 EU/dL (0.2-1.0)
[2024-09-14 08:53] LABS: Bacteria Urine TRACE #/HPF (NONE SEEN); Crystals Seen? None Seen #/HPF (None Seen); Mucus Urine NONE SEEN (NONE SEEN); RBC Urine 0-2 #/HPF (0-2); Squamous Epithelial Cell Urine FEW #/LPF (NONE/RARE); Transitional Epi Cells Urine RARE #/LPF (NONE SEEN)
[2024-09-14 08:54] LABS: Cast Seen? NONE SEEN #/LPF (NONE SEEN); Urine Culture Indicated NO
== END 2024-09-14 07:30 | disposition home or self-care (01) ==
LOC: LAB 07:37
PROVIDERS: PCP Nurse Practitioner
DX: R53.83 Other fatigue (principal); Z60.8 Other problems related to social environment
CPT/HCPCS: 81001

== ENCOUNTER 2025-05-27 13:38 | Emergency (ER) | payer OTHER, MEDICAID, SELFPAY ==
--- OUTSIDE RECORDS SUMMARY | 2025-05-13 11:01 | XMS_ITS | Continuity of Care Document ---
Author Organization [facility] Address [address] [place] [address] Phone Care Team Providers Care Industrial Safety And Health Specialist Name Role Phone NO FAMILY, PHYSICIAN Primary Care Provider Dalton Elliott MD Attending Provider Germania Vidal DO Attending Provider Debora Kerr APRN Attending Provider Care Teams Patient Care Team Team Status: Active Member Role/Relationship Status Dates PHYSICIAN NO FAMILY Primary Care Provider Active Visit Care Team Team Status: Active Member Role/Relationship Status Dates PHYSICIAN NO FAMILY Primary Care Provider Active Start: March 26, 2025 Keeley Lopez ProviderActiveStart: March 26, 2025 Visit Care Team Team Status: Inactive Member Role/Relationship Status Dates PHYSICIAN NO FAMILY Primary Care Provider Active Start: May 02, 2025 End: May 02, 2025Crystal Beaver ProviderActiveStart: May 02, 2025 End: May 02, 2025 Patient Care Team Team Status: Inactive Member Role/Relationship Status Dates PHYSICIAN NO FAMILY Primary Care Provider Active Start: May 13, 2025 End: May 13, 2025Debora Kerr APRN MILLING/POLISHING OPERATOR-CAttending Provider ActiveStart: May 13, 2025 End: May 13, 2025 Chief Complaint and Reason for Visit Chief Complaint Admit Date March 26, 2025 9 :30am SB JULIETTE ND May 02, 2025 9:12am Cough, congestion May 13, 2025 3 :32pm Reason for Visit Admit Date Alzheimer disease November 20th, 2025 9:12am Behavior disorder May 02, 2025 9:12am Cognitive developmental delay April 142024 9:12am Down's syndrome May 02, 2025 9:12am Primary insomnia May 02, 2025 9:12am Viral URI May 13, 2025 3 :32pm Contact with and (suspected) exposure to covid-19 May 13, 2025 3:32pm Allergies, Adverse Reactions, Alerts Allergen Type Severity Reaction Last Updated Verified Status No Known Allergies Allergy Unknown May 13, 2025 3:34pmYesActive Social History Smoking Status Status Start Date End Date Date of Observa tion Never smoked tobacco (finding) September 13, 2024 5:25pm Observation Status Observation Response Date of Response Legal Sex Female (finding) [facility] Problems Active Problems Problem Diagnosis/Recorded Date Onset Date Stat Primary insomnia May 02, 2025 9:44am Unknown Active Alzheimer disease May 02, 2025 9:44am Unknown Active Anxiety September 13, 2024 4:24pm Unknown Activ e Seasonal allergies September 13, 2024 4:24pm Unknown Active Cognitive developmental delay May 02, 2025 9:43 am Unknown Active Down's syndrome May 02, 2025 9:43am Unknown Active Viral URI May 13, 2025 3:52pm Unknown Ac tive Behavior disorder May 02, 2025 9:43am Unknown Active Medications Medication Status Dose Units Route Directions Qty Days Refills S tart Date Stop Date End Date Reason(s) Instructions Adherence Memantine 10 mg tablet Discontinued 10 MG PO Twice daily 18 0 90 0 December 10, 2024 1:04pm January 09, 2025 10:15amMemantine 10 mg ddmvcxIzvooaxjmpwp74WCVTAizuu kgstv35396 January 09, 2025 10:15amJuly 2024 10:15amMemantine 10 mg tabletDiscontinued 10MGPOTwice encuj24734Ubph 2024 10:15amOctober 2024 3:53pmMemantine 10 mg nmtifvNboqskdoqjiz56VHPVUivne wcbgj13519Bifahud 2024 3:53pmDecember 2024 3:57pmMemantine 10 mg teketbMzhlwr99PTMNPqvdx epcwx44643Ctdmdtxn 1st, 2025 3:56pmUnknownMedroxyprogesterone 150 mg/mL syringeActiveMGIMApril 2024 11:00pmComplies with drug therapyAmmonium Lactate 12 % creamActiveAPPLICTOPICAL September 12, 2024 11:00pmComplies with drug therapyCetirizine 10 mg vvcapiHehvrk41 MGPODailyApril 2024 11:00pmComplies with drug therapyDocusate Sodium 100 mg capsuleActiveMGPOApril 2024 11:00pmComplies with drug therapyClonazepam 0.5 mg tabletDiscontinued0.5MGPOTwice dailyApril 2024 11:00pm[facility] 9:23amMemantine 10 mg nwqpvwEthbikwdlmks04WQYPMeptt 2024 11:00pm[facility] 20[facility] 1:05pmRisperidone 3 mg svxvidXzdgoipsuhsa5KWUDBvikh 2024 11:00pm May 02, 2025 9:23amTrazodone 100 mg lmtnksQdlxzqhazobs341ISBJGnvex 2024 11:[facility]pm[facility] 20[facility] 9:23amRisperidone 3 mg rraumnTdyynn3ORKBYcxyk dailyBaptist [facility] 2024 9:22amComplies with drug therapyClonazepam 0.5 mg tabletActive0.5MGPODaily at bedtimeBaptist Health [facility] 2024 9:22amComplies with drug therapyTrazodone 100 mg jswuyjObvxeu075ZDXEGekzm at bedtimeBaptist Health [facility] 2024 9:22amComplies with drug therapyCholecalciferol (Vitamin D3) 50 mcg (2,000 unit) kgwltfcFlclbz8958NWGCFUFmpatHtlawyaa 2024 12:00amComplies with drug therapy Vital Signs Vital Reading Result Reference Range Collection Date/Time Height 61 [in_i] May 02, 2025 9:31ueOscjye28.37 kgBaptist [facility] 2024 9:20amHeart Rate88 /zhr08-285Jovnzwga 2024 9:20amOxygen saturation by Pulse ljnuwjgi97 % 95-100[facility] 2024 9:20amBP Cnkkmghy026 mm[Hg]100-140[facility] 2024 9:20amBP Otgcnajaf18 mm[Hg]60-100Nov2024 9:20amBMI (Body Mass Index) 23.8 kg/w6KcuwsjpsMay 02, 2025 9:27kuLghvev52 [in_i]May 13, 2025 3:38pm Dcuytl14.11 kgDecember 2024 3:38pmBody Looqoicwaox69.2 [degF]97.6-99.0 May 13, 2025 3:38pmHeart Wgur726 /idb17-099Dwhjbaka 1st, 2025 3:38pm Respiratory rate22 /wbb28-85Talkvfqc 1st, 2025 3:38pmOxygen saturation by Pulse hsshpjih85 %95-100Decemb2024 3:38pmBP Jxhulcdh478 mm[Hg]100-140Decemb2024 3:38pmBP Ncgqsdlxr87 mm[Hg]60-100Decemb2024 3:38pmBMI (Body Mass Index)24.2 kg/t5Pqjyqukj2024 3:38pm Advance Directives Advance Directive Response Recorded Date/ Time Advance Directives No September 13 4:14pm Insurance Providers Guarantor Queenie Sanchesor Address [address] [facility] [address]Lkawyam Info.Home Phone: Coverage Status Update:2025 Payer Group Member ID Coverage Type Subscriber Relationship to Subscriber Effective Date Expiration Date Medicaid [id number] K Nailor Id: [id number] [address] [place] [address] Home Phone: selfMedicare [id number] K Nailor Id: [id number] [address] [place] [address] [facility] [id number] K Nailor Id: [id number] [address] [place] [address] Home Phone: selfOther1 (STD) STANDRD Id: [id number] Encounters Encounter Location(s) Arrival/Admit Date Discharge/Departure Date Discharge/Departure Disposition Provider(s) Registered Recurring - Credible March 26, 2025 9 :30am DIGNA Lopezeparted Physician/Provider Office Visit-[facility] Neurology [facility] 2024 9:12amNoveer 2024 9:39amDischarged to home care or self care (routine discharge)BROOKS Burnseparted Physician/Provider Office Visit-[facility] Urgent Care [facility] 2024 3:32pm May 13, 2025 3:57pmDischarged to home care or self care (routine discharge)Debora Kerr APRN Recent Diagnosis Onset Date Admit Date Alzheimer disease Unknown May 02, 2025 9:12am Behavior disorder Unknown May 02, 2025 9:12am Cognitive developmental delay Unknown No vember 2024 9:12am Down's syndrome Unknown May 02, 025 9:12am Primary insomnia Unknown May 02, 2025 9:12am Viral URI Unknown May 13 3:32pm Contact with and (suspected) exposure to covid-19 Unknown May 13, 2025 3:32pm Assessments Diagnosis Onset Date Resolution Status Admit Date Alzheimer disease acuteMay 02, 2025 9:12amBehavior disorderacuteMay 02, 2025 9:12am Cognitive developmental delayacuteMay 02, 2025 9:12amDown's syndromeacute May 02, 2025 9:12amPrimary insomniaacuteMay 02, 2025 9:12amViral URIacuteDeceer 2024 3:32pmContact with and (suspected) exposure to covid-19noneactiveDeceer 2024 3:32pm Plan of Treatment Author Germania Vidal [facility]2024 9:47amA 4-year-old female with Down syndrome and MRDD. Patient is transforming into some early Alzheimer's type of dementia as this is expected with this population. Patient was having some mood disruption however her Namenda was at 20 mg twice a day which is not the recommended dose. She is back down to 10 mg twice a day and appears to be tolerating that well. Reportedly mother did not want to retry Aricept as she had some issues with it in the past. She does see Dr. Nguyễn. She is on Risperdal. She is on trazodone for sleep. Her insomnia and mood disorder are stable at this time. She did have a head CT 2014 that was normal Plan Continue the Namenda 10 mg twice daily Monitor for any signs of seizure Monitor for any progressive dysphagia Try to keep the patient active and independent as possible Call if there is any new issues Continue with Dr. Nguyễn Her chart was reviewed The diagnosis was all discussed with the patient.?? All questions were answered and they agreed with the treatment plan.?? Patient will call if there are any new issues or questions. Author Debora Kerr [facility] 2024 3:54pmIllness is likely viral in nature; and may take up to 7-10 days to run its course. Treatment is symptomatic. Push fluids, rest. May use tylenol and motrin as needed. If symptoms do not resolve over the next few days, patient is to call back. Future Tests Future scheduled test information is unavailable Pending Tests Pending diagnostic test information is unavailable Future Visits Future appointment information is unavailable Future Procedures Procedure Name Ordered Date Scheduled Date AMB POC COV/Flu A/B/RSV PCR May 13, 2025 3 :50pm Future Medications Future medication information is unavailable Patient Instructions Patient instructions are unavailable
[2025-05-27 13:43] VITALS: BP 103/51; PULSE 76; TEMP 36.4; O2SAT 100; BMI 23.4
--- NOTE | 2025-05-27 14:07 | XR_ITS ---
[place] [id number] Patient Name: DEMETRIA BERRY MRN: [id number] date: 1990 Sex: F Assigned Patient Location: ER Current Patient Location: ER Accession/Order Number: [id number] Exam Date: 05/27/2025 14:28 Report Date: 05/27/2025 14:42 At the request of: TOMY MERRITT MD Procedure: XR chest 1V Single view chest: CLINICAL HISTORY: wheezing COMPARISON: Chest 05/20/2023 FINDINGS: The heart is normal in size. Interstitial changes. No consolidation pneumothorax pleural effusion or free air. IMPRESSION: INTERSTITIAL CHANGES. NO CONSOLIDATION TO SUGGEST PNEUMONIA. Impression dictated by: Douglas Winchester Jr., DSabineOSabine 05/27/2025 2:42 PM Dictation Location: [place] [address] Electronically authenticated by: [id number] Y Date: 05/27/2025 14:42
[2025-05-27 14:26] LABS: Hematocrit 41.1 % (36.0-48.0); Hemoglobin 13.9 g/dL (12.0-16.0); Immature Granulocytes Abs Auto 0.01 10^3/uL (0.00-0.03); Immature Granulocytes Pct Auto 0.2 % (0.0-0.5); Lymphocytes Absolute Auto 1.1 10^3/uL (1.2-3.8); Mean Corpuscular HGB Conc 33.8 g/dL (29.9-35.2); Mean Corpuscular Hemoglobin 34.3 pg (26.7-34.0); Mean Corpuscular Volume 101.5 fL (81.0-99.0); Platelet Count 325 10^3/uL (150-450); Red Blood Count 4.05 10^6/uL (4.20-5.40); White Blood Count 5.7 10^3/uL (4.0-11.0)
[2025-05-27 14:32] VITALS: PULSE 80; O2SAT 97
[2025-05-27] MEDS: ALBUTEROL SULFATE 2.5 MG/3 ML VIAL NEB IH (14:32)
[2025-05-27 14:45] LABS: Alanine Aminotransferase 26 U/L (14-59); Albumin Globulin Ratio 0.6; Albumin Level 2.9 g/dL (3.4-5.0); Alkaline Phosphatase 100 U/L (46-116); Anion Gap 9.6; Aspartate Amino Transferase 23 U/L (15-37); Blood Urea Nitrogen 20.0 mg/dL (7.0-18.0); Calcium 8.6 mg/dL (8.5-10.1); Carbon Dioxide 31.4 mmol/L (21.0-32.0); Chloride 107 mmol/L (98-107); Estimated GFR (African America >60 (>=60 mL/min/1.73m^2); Estimated GFR (Non-African Ame >60 (>=60 mL/min/1.73m^2); Globulin 4.5 g/dL; Glucose 112 mg/dL (74-106); Potassium 4.0 mmol/L (3.5-5.1); Sodium 144 mmol/L (136-145); Total Protein 7.4 g/dL (6.4-8.2)
--- NOTE | 2025-05-27 16:11 | ED.URI1 ---
HPI - URI/Sore Throat General Chief Complaint: Upper Respiratory Infection Stated Complaint: FELL 4X TODAY Time Seen by Provider: 05/27/25 14:00 Source: caregiver Limitations: language barrier History of Present Illness HPI Narrative: The patient have a history of MRDD presenting to us from a alf she is nonverbal and her caregiver at the bedside mentioned that she has been having falls, patient have history of falling frequently at the baseline but for the last 24 hours the patient was falling more than usual and mostly she just falls in her knees forward, there was no history of any head injury or any loss of consciousness The patient otherwise according to the caregiver had no complaint of pain and she did walk into the ER At the bedside the patient was not having any complaint and did not have any distress she is nonverbal but I did notice that the patient have dry mucous membranes Related Data Home Medications ?Medication ?Instructions ?Recorded ?Confirmed multivitamin (Daily Multi-Vitamin 1 tab PO DAILY 11/24/22 09/05/23 tablet) risperidone 1 mg tablet 1 mg PO DAILY 11/24/22 09/05/23 trazodone 100 mg tablet 150 mg PO DAILY PRN insomnia 11/24/22 05/27/25 medroxyprogesterone 150 mg/mL 150 mg IM .q3 months 09/05/23 09/05/23 intramuscular suspension memantine 10 mg tablet 10 mg PO BID 09/05/23 05/27/25 cetirizine 10 mg tablet mg 05/27/25 cholecalciferol (vitamin D3) 50 05/27/25 mcg (2,000 unit) capsule clonazepam 0.5 mg tablet mg 05/27/25 docusate sodium 100 mg capsule mg PO 05/27/25 guaifenesin 600 mg tablet, mg PO 05/27/25 extended release 12 hr (Mucus Relief ER) medroxyprogesterone 150 mg/mL mg IM 05/27/25 intramuscular syringe risperidone 3 mg tablet mg 05/27/25 Previous Rx's ?Medication ?Instructions ?Recorded sodium chloride 0.65 % nasal spray 1 spray intranasal BID PRN dry 05/27/25 aerosol nasal passages #15 mL Allergies Allergy/AdvReac Type Severity Reaction Status Date / Time No Known Drug Allergies Allergy Verified 05/27/25 13:49 Review of Systems ROS Status of ROS 10 or more systems reviewed and unremarkable except as noted in history and below PFSH PFSH Social History Smoking status: Never smoker Exam Narrative Exam Narrative: Nurses notes and vital signs reviewed and patient is not hypoxic. General: Well-appearing and in no apparent distress. Skin: Warm, dry, no pallor noted. No rash. Head: Normocephalic, atraumatic. Neck: Supple, non-tender. Eye: Pupils are equal, round and EOMI. No scleral icterus. Ears, Nose, Mouth, and Throat: Dry nasal mucosa bilaterally Cardiovascular: Regular Rate and Rhythm without murmur, gallop or rub. Respiratory: No accessory muscle use or respiratory distress. Lungs very faint expiratory lung wheezes bilaterally Back: No midline thoracic or lumbar vertebral tenderness. No CVA tenderness Musculoskeletal: normal ROM, no calf or popliteal tenderness, no lower extremity edema/swelling the patient have no tenderness on palpation of the right or left knee and no ecchymosis GI: Abdomen is soft, non-distended. Normal bowel sounds. No masses appreciated. No tenderness to palpation. No rebound, guarding, or rigidity noted. Neurological: Alert, no cranial nerve dysfunction observed. No truncal ataxia. Moves all extremities. Constitutional Vital Signs, click to edit/add: Last Vital Signs Temp 97.6 F 05/27/25 13:43 Pulse 80 05/27/25 14:32 Resp 18 05/27/25 14:32 BP 103/51 05/27/25 13:43 Pulse Ox 97 05/27/25 14:32 O2 Del Method Room Air 05/27/25 14:32 Course Vital Signs Vital signs: Vital Signs Temperature 97.6 F 05/27/25 13:43 Pulse Rate 76 05/27/25 13:43 Respiratory Rate 18 05/27/25 13:43 Blood Pressure 103/51 05/27/25 13:43 Pulse Oximetry 100 05/27/25 13:43 Oxygen Delivery Method Room Air 05/27/25 13:43 Temperature 97.6 F 05/27/25 13:43 Pulse Rate 80 05/27/25 14:32 Respiratory Rate 18 05/27/25 14:32 Blood Pressure 103/51 05/27/25 13:43 Pulse Oximetry 97 05/27/25 14:32 Oxygen Delivery Method Room Air 05/27/25 14:32 MDM - URI/Sore Throat MDM Narrative Medical decision making narrative: Patient was not very cooperative with examination but she was eager to leave the room The patient CBC and chemistry showed no acute significant pathology The examination at the bedside shows only dry nasal mucosa Patient already had a baseline of falling but right now the increase in falling could be secondary to dehydration in the caregiver at the bedside instructed on hydration and [place] prescription provided to keep the nasal mucosa moist It was noted that the patient also had some wheezing initially but I did give her 1 breathing treatment and did an chest x-ray that showed no acute pathology The wheezing could be secondary to not coughing and the patient was not cooperative I did explain to the caregiver at the bedside right now the plan to hydrate very well and monitor The patient to follow-up with the primary care within 2 to 3 days and to come back to the ER in case of any worsening of the current symptoms or any new symptoms or concerns Lab Data Labs: Lab Results 05/27/25 Range/Units 14:18 WBC 5.7 (4.0-11.0) 10^3/uL RBC 4.05 L (4.20-5.40) 10^6/uL Hgb 13.9 (12.0-16.0) g/dL Hct 41.1 (36.0-48.0) % MCV 101.5 H (81.0-99.0) fL MCH 34.3 H (26.7-34.0) pg MCHC 33.8 (29.9-35.2) g/dL RDW 13.6 (11.0-15.0) % Plt Count 325 (150-450) 10^3/uL MPV 9.1 L (9.5-13.5) fL Neut % (Auto) 71.4 (43.0-75.0) % Lymph % (Auto) 18.9 L (20.5-60.0) % [place] % (Auto) 7.2 (1.7-12.0) % Eos % (Auto) 0.4 L (0.9-7.0) % Baso % (Auto) 1.9 (0.2-2.0) % Neut # (Auto) 4.0 (1.4-6.5) 10^3/uL Lymph # (Auto) 1.1 L (1.2-3.8) 10^3/uL [place] # (Auto) 0.4 (0.3-0.8) 10^3/uL Eos # (Auto) 0.0 (0.0-0.7) 10^3/uL Baso # (Auto) 0.1 (0.0-0.1) 10^3/uL Abs Immat Gran (auto) 0.01 (0.00-0.03) 10^3/uL Imm/Tot Granulo (auto) 0.2 (0.0-0.5) % Sodium 144 (136-145) mmol/L Potassium 4.0 (3.5-5.1) mmol/L Chloride 107 (98-107) mmol/L Carbon Dioxide 31.4 (21.0-32.0) mmol/L Anion Gap 9.6 BUN 20.0 H (7.0-18.0) mg/dL Creatinine 0.86 (0.55-1.02) mg/dL Est GFR ( Amer) >60 (>=60 mL/min/1.73m^2) Est GFR (Non-Af Amer) >60 (>=60 mL/min/1.73m^2) BUN/Creatinine Ratio 23.3 Glucose 112 H (74-106) mg/dL Calcium 8.6 (8.5-10.1) mg/dL Total Bilirubin 0.2 (0.2-1.0) mg/dL AST 23 (15-37) U/L ALT 26 (14-59) U/L Alkaline Phosphatase 100 (46-116) U/L Total Protein 7.4 (6.4-8.2) g/dL Albumin 2.9 L (3.4-5.0) g/dL Globulin 4.5 g/dL Albumin/Globulin Ratio 0.6 Discharge Plan Discharge Chief Complaint: Upper Respiratory Infection Clinical Impression: Viral sinusitis, Fall Patient Disposition: Home, Self-Care Time of Disposition Decision: 15:01 Condition: Good Prescriptions / Home Meds: New sodium chloride 0.65 % aerosol,spray 1 spray intranasal BID PRN (Reason: dry nasal passages) Qty: 15 0RF No Action multivitamin [Daily Multi-Vitamin] Tablet 1 tab PO DAILY risperidone 1 mg tablet 1 mg PO DAILY trazodone 100 mg tablet 150 mg PO DAILY PRN (Reason: insomnia) medroxyprogesterone 150 mg/mL suspension 150 mg IM .q3 months memantine 10 mg tablet 10 mg PO BID cetirizine 10 mg tablet clonazepam 0.5 mg tablet risperidone 3 mg tablet docusate sodium 100 mg capsule PO medroxyprogesterone 150 mg/mL syringe IM cholecalciferol (vitamin D3) 50 mcg (2,000 unit) capsule guaifenesin [Mucus Relief ER] 600 mg tablet extended release 12hr PO Print Language: Tajik Instructions: Fall Prevention (ED) Additional Instructions: Please make sure to encourage hydration Referrals: JUSTIN BATES [Primary Care Provider, Unknown] - 1 week Discharge Date/Time: 05/27/25 15:21
== END 2025-05-27 15:21 | disposition home or self-care (01) ==
PROVIDERS: Emergency Provider Emergency Medicine; PCP Nurse Practitioner
DX: J32.9 Chronic sinusitis, unspecified (principal); B97.89 Other viral agents as the cause of diseases classified elsewhere; Z91.81 History of falling; F79 Unspecified intellectual disabilities
CPT/HCPCS: 36415; 71045; 80053; 85025; 94640; 99284